=== PATIENT | female | born 1940 | race Caucasian/White ===

== ENCOUNTER 2018-10-22 08:02 | Emergency (ER) | payer MEDICARE ==
[~2018-10-22] VITALS: Ht 162.6 cm; Wt 49.0 kg
[~2018-10-22 08:02] MED LIST: ALBUTEROL S2.5 MG/.5 NEB; ALLEGRA180 MG PO; ASPIRIN EC81 MG PO; CO Q-10100 MG PO; COUGH PO; DUCODYL5 MG PO; DUONEB IN; EQUATE PO; FUROSEMIDE20 MG PO; KIONEX PO; LOSARTAN POTASS50 MG PO; MAGNESIUM-OX400 MG PO; MEDDOSEPAK PO; METOPROLOL SUC100 MG PO; MSM1500 MG PO; NEBULIZE2; OMEGA 31000 MG PO; PRAVACHOL20 MG PO; PREDNISONE10 MG PO; PROBIOTIC1 TAB PO; PROVENTIL HFA IN; SPIRIVA IN; TESSALON PER100 MG PO; ZITHROMAX250 MG PO; ZITHROMAX500 MG PO; [UNRECOGNIZED DRUG - CODE]
[2018-10-22 09:00] LABS: HEMOGLOBIN 14.3 g/dl (12.0-16.0); IMMATURE GRANULOCYTES 0.4 % (0.0-5.0); MEAN CELL VOLUME 104.9 fL CALC (80.0-100.0); MEAN CORPUSCULAR HGB 36.6 pG CALC (26.0-32.0); MEAN CORPUSCULAR HGB CONC 34.9 g/L CALC (32.0-36.0); NEUT# 6.29 thou/uL (2.00-7.15); RED BLOOD COUNT 3.91 mill/uL (4.20-5.60); RED CELL DISTRI WIDTH 15.5 % (11.5-15.5)
[2018-10-22 09:11] LABS: ALBUMIN 4.7 g/dL (3.2-5.0); BILIRUBIN, TOTAL 1.6 mg/dL (0.0-1.4); POTASSIUM 4.4 mmol/l (3.5-5.1); TOTAL PROTEIN 7.6 g/dL (6.3-8.2)
[2018-10-22 11:29] LABS: URINE BILIRUBIN - DIPSTICK NEGATIVE (NEGATIVE); URINE BLOOD DIPSTICK SMALL (NEGATIVE); URINE COLOR YELLOW; URINE GLUCOSE - DIPSTICK NEGATIVE (NEGATIVE); URINE KETONE TRACE mg/dL (NEGATIVE); URINE NITRITE - DIPSTICK NEGATIVE (Negative); URINE PROTEIN - DIPSTICK 30 mg/dL (NEG-TRACE); URINE SPECIFIC GRAVITY 1.015; URINE UROBILINOGEN - DIPSTICK 0.2 E.U./dL (0.2)
[2018-10-22 11:30] LABS: URINE LEUK ESTERASE MODERATE (NEGATIVE)
[2018-10-22 11:46] LABS: URINE BACTERIA MODERATE hpf; URINE SQUAMOUS EPITHELIAL CELL FEW EPI/hpf (0-FEW); URINE WBC TNTC WBC/hpf (0-5)
[2018-10-22 12:00] VITALS: BP 164/84
== END 2018-10-22 12:00 | disposition short-term general hospital (02) ==
LOC: ED 08:02
PROVIDERS: Family Medicine
DX: I21.4 Non-ST elevation (NSTEMI) myocardial infarction (principal); I10 Essential (primary) hypertension; R82.71 Bacteriuria
CPT/HCPCS: J1644

== ENCOUNTER 2018-11-16 10:37 | Observation (INO) | payer MEDICARE ==
[~2018-11-16] VITALS: Ht 162.6 cm; Wt 46.0 kg
--- NOTE | 2018-11-16 10:40 | NUR ---
TO ROOM 13 VIA W/C
[2018-11-16 11:35] LABS: HEMATOCRIT 43.6 % (37.0-47.0); HEMOGLOBIN 14.5 g/dl (12.0-16.0); IMMATURE GRANULOCYTES 0.5 % (0.0-5.0); MEAN CELL VOLUME 108.5 fL CALC (80.0-100.0); MEAN CORPUSCULAR HGB 36.1 pG CALC (26.0-32.0); MEAN CORPUSCULAR HGB CONC 33.3 g/L CALC (32.0-36.0); NEUT# 11.02 thou/uL (2.00-7.15); RED BLOOD COUNT 4.02 mill/uL (4.20-5.60); RED CELL DISTRI WIDTH 13.1 % (11.5-15.5)
--- NOTE | 2018-11-16 11:40 | NUR ---
PT RESTING QUIETLY AT THIS TIME. NO DOUBLE VISION AT THIS TIME, JUST STATES THAT SHE HAS BLURRY VISION..
[2018-11-16 11:56] LABS: ALBUMIN 4.7 g/dL (3.2-5.0); CREATININE 2.2 mg/dL (0.5-1.0); POTASSIUM 4.4 mmol/l (3.5-5.1); TOTAL PROTEIN 8.1 g/dL (6.3-8.2)
--- NOTE | 2018-11-16 12:36 | NUR ---
PTS BLOOD PRESSURE DECREASED, STATES FEELS LESS DIZZY AT THIS TIME, DR. SULLIVAN SPEAKING WITH PT ABOUT POSSIBLE ADMISSION
--- NOTE | 2018-11-16 13:35 | NUR ---
ADVISED PT OF NO BED STATUS FOR ADMISSION, MEAL TRAY ORDERED. WARM BLANKETS GIVEN, PT SITTING UP IN BED EATING TRAY WATCHING TV.
--- NOTE | 2018-11-16 14:07 | NUR ---
PT RESTING QUIETLY, VITAL SIGNS STABLE, SIDE RAILS UP, CALL LIGHT CLOSE
--- NOTE | 2018-11-16 15:27 | NUR ---
PT RESTING QUIETLY ON STRETCHER, LIGHTS TURNED OFF AND IV FLUIDS INFUSING
--- NOTE | 2018-11-16 16:13 | NUR ---
VITAL SIGNS REMAIN STABLE ,PT SLEEPING AT THIS TIME
--- NOTE | 2018-11-16 16:39 | NUR ---
REPORT GIVEN TO MED SURG FOR CONTINUATION OF CARE
--- NOTE | 2018-11-16 16:57 | NUR ---
PT TAKEN TO FLOOR PER STRETCHER AND TELEMENTRY
[2018-11-16 16:58] VITALS: BP 180/98
--- NOTE | 2018-11-16 17:27 | NUR ---
PT HAD COME FROM ER [facility]IA [facility]. HEAVY ANTIARMOR WE[employer]ONS INFANTRYMAN OBTAIN VS AND WT. ASSESSMENT DONE TELE IN PLACE. PT IS A&O X3 BUT FORGETFUL. #22 LAC THAT APPEARS HEALTHY. LEFT SIDE OF FACE PT HAS A BRUISE DUE TO HER FALL AT HOME. SAFETY PRECAUTIONS REINFORCED AND CALL LIGHT IN REACH. AT BEDSIDE TO ASSESS PT. NOTIFIED MD THAT PT HAS NOT HAD A BM FOR THREE DAYS AND BP 180/98. MD STATED WILL REVIEW.
[2018-11-16 18:43] VITALS: BP 170/94
[2018-11-16 19:20] VITALS: BP 140/79
--- NOTE | 2018-11-16 19:36 | NUR ---
PATIENT RESTING IN BED AT THIS TIME-AWAKE ALERT AND ORIENTEDX2. PATIENT WITH TELE MONITOR IN PLACE. IV SITE TO RIGHT AC INTACT WITH IVF LR PATENT AND INFUSING AT 100CC/HR. SITE IS HEALTHY AT THIS TIME. PATIENT WITH EECYMOTIC AREA TO LEFT SIDE OF HER FACE FROM FALL AT HOME EARLIER TODAY. PATIENT ASSISTED OOB TO THE WHEELCHAIR AND TAKEN TO ECHO FOR TESTING BY STAFF. WILL CONT TO MONITOR.
[2018-11-16 23:45] VITALS: BP 135/74
--- NOTE | 2018-11-17 | NUR ---
PATIENT FOUND SITTING ON BR FLOOR-INCONT OF MODERATE AMT OF SEMI-FORMED BROWN STOOL. PATIENT ALSO PULLED IV OUT. VS TAKEN AND RECORDED. PATIENT ASSISTED TO SHOWER TO CLEAN UP THEN ASSISTED BACK TO BED. TELE MONITOR REAPPLIED. PATIENT DENIES ANY PAIN. NSG PAPER BAG INSPECTOR NOTIFIED OF FALL. BED ALARM IN PLACE. CALL LIGHT IN REACH. WILL CONT TO MONITOR.
[2018-11-17 04:20] VITALS: BP 150/92
--- NOTE | 2018-11-17 04:33 | NUR ---
PATIENT APPEARS SLEEPING AT THIS TIME-POSITIONED ON HER RIGHT SIDE WITH EYES CLOSED. IVF PATENT AND INFUSING AT 100CC/HR. SITE TO RIGHT UPPER ARM/CHEST IS HEALTHY AT THIS TIME. TELE MONITOR IN PLACE. BED ALARM IN PLACE FOR PATIENT SAFETY. CALL LIGHT IN REACH. WILL CONT TO MONITOR.
[2018-11-17 05:17] LABS: HEMOGLOBIN 12.8 g/dl (12.0-16.0); IMMATURE GRANULOCYTES 0.5 % (0.0-5.0); MEAN CELL VOLUME 105.1 fL CALC (80.0-100.0); MEAN CORPUSCULAR HGB CONC 34.2 g/L CALC (32.0-36.0); NEUT# 8.09 thou/uL (2.00-7.15); RED BLOOD COUNT 3.56 mill/uL (4.20-5.60); RED CELL DISTRI WIDTH 12.7 % (11.5-15.5)
[2018-11-17 05:24] LABS: HEMATOCRIT 37.4 % (37.0-47.0)
[2018-11-17 05:26] LABS: BILIRUBIN, TOTAL 0.6 mg/dL (0.0-1.4); CREATININE 1.8 mg/dL (0.5-1.0); MAGNESIUM 1.9 mg/dL (1.6-2.3)
[2018-11-17 05:30] LABS: ALBUMIN 3.3 g/dL (3.2-5.0); TOTAL PROTEIN 5.9 g/dL (6.3-8.2)
[2018-11-17 07:39] VITALS: BP 139/58
--- NOTE | 2018-11-17 07:41 | NUR ---
REPORT RECEIVED FROM LILY LAY. PT LYING ON RIGHT SIDE IN BED. DENIES PAIN. REPORTING OF CONCERNS ENCOURAGED. PT REFUSING TO SIT IN CHAIR FOR BREAKFAST. PT ASSISTED TO SITTING POSITION FOR MEAL. FALL PRECAUTIONS REINFORCED. PLAN OF CARE DISCUSSED. CALL LIGHT REVIEWED AND IN REACH. PT STATES UNDERSTANDING. BED ALARM SET FOR SAFETY.
[2018-11-17 11:45] VITALS: BP 131/79
--- NOTE | 2018-11-17 12:15 | NUR ---
DR. MABRY IN TO SEE PT AT THIS TIME. VISITORS (NEIGHBORS AT BEDSIDE). PLAN OF CARE DISCUSSED. PT ADAMENT ABOUT NOT GOING TO [facility] IN THE FUTURE. NEIGHBORS VOICE CONCERNS ABOUT PT'S SAFETY ALONE AT HOME.
[2018-11-17 13:28] LABS: URINE BILIRUBIN - DIPSTICK NEGATIVE (NEGATIVE); URINE BLOOD DIPSTICK NEGATIVE (NEGATIVE); URINE COLOR YELLOW; URINE GLUCOSE - DIPSTICK NEGATIVE (NEGATIVE); URINE KETONE NEGATIVE (NEGATIVE); URINE NITRITE - DIPSTICK NEGATIVE (Negative); URINE PH 5.5 (4.5-8.0); URINE PROTEIN - DIPSTICK NEGATIVE (NEG-TRACE); URINE UROBILINOGEN - DIPSTICK 0.2 E.U./dL (0.2)
[2018-11-17 13:31] LABS: URINE LEUK ESTERASE MODERATE (NEGATIVE)
[2018-11-17 13:32] LABS: URINE EPITHELIAL CELLS FEW EPI/hpf (0-FEW); URINE RENAL EPITHELIAL CELLS FEW hpf
[2018-11-17 15:50] VITALS: BP 160/86
[2018-11-17 19:00] VITALS: BP 162/86
--- NOTE | 2018-11-17 20:00 | NUR ---
PATIENT RESTING IN BED POSITIONED ON RIGHT SIDE WITH BALL CAP IN PLACE. EYES ARE CLOSED AND APPEARS SLEEPING AT THIS TIME. RESP ARE EVEN AND UNLABORED. IVF LR PATENT AND INFUSING AT 100CC/HR VIA RIGHT UPPER ARM/CHEST SITE. SITE APPEARS HEALTHY AT THIS TIME. TELE MONITOR IN PLACE. LEFT SIDE OF PATIENT FACE/CHEEK IS ECCYMOTIC FROM FALL AT HOME. BED ALARM IN PLACE FOR PATIENT SAFETY. CALL LIGHT IN REACH. WILL CONT TO MONITOR.
--- NOTE | 2018-11-18 | NUR ---
BED ALARM IS GOING OFF-FOUND PATIENT TRYING TO GET OOB BY HERSELF. PATIENT IS FRAIL AND UNSTEADY ON HER FEET WITH HX OF FALLS. REINFORCED SAFETY PRECAUTIONS AND ASSISTED PATIENT TO THE BR TO VOID AND HAD SMALL BROWN BM. ASSISTED BACK TO BED AND BED ALARM IS BACK IN USE FOR PATIENT SAFETY. CALL LIGHT IN REACH. WILL CONT TO MONITOR.
[2018-11-18 00:44] VITALS: BP 166/89
--- NOTE | 2018-11-18 00:52 | NUR ---
PATIENT RESTING IN BED-EASY TO AROUSE. BP-166/89, HR-82, O2 SATS M96%. PATIENT MEDICATED WITH APRESOLINE 10 MG IVP FOR HTN VIA RIGHT UPPER ARM SITE. SAFETY PRECAUTIONS REINFORCED.BED ALARM IN PLACE FOR PATIENT SAFETY, CALL LIGHT IN REACH. WILL CONT TO MONITOR.
[2018-11-18 04:12] VITALS: BP 123/82
--- NOTE | 2018-11-18 05:13 | NUR ---
PATIENT APPEARS SLEEPING AT THIS TIME POSITIONED ON HER RIGHT SIDE WITH EYES CLOSED. RESP ARE EVEN AND UNLABORED. IVF PATENT AND INFUSING AT 100CC/HR A RIGHT UPPER ARM SITE. SITE APPEARS HEALTHY AT THIS TIME.TELE MONITOR IN PLACE. BED ALARM IN PLACE FOR PATIENT SAFETY. CALL LIGHT IN REACH. WILL CONT TO MONITOR.
[2018-11-18 07:50] VITALS: BP 166/87
--- NOTE | 2018-11-18 08:00 | NUR ---
ASESSMENT DONE TELE IN PLACE. PT IS A&O X2 BUT CONFUSED AT TIMES. LR INFUSING WELL AT 100ML/HR WELL. PT STATED PAIN IN BACK 03/29. PT REFUSED HER BREAKFAST. ENCOURAGE PT WITH PO FLUIDS. PT TOOK SMALL SIP OF WATER. PT DENIES NEEDS AT THIS TIME. BED ALARM IN PLACE AND CALL LIGHT IN REACH.
[2018-11-18 11:30] VITALS: BP 137/81
--- NOTE | 2018-11-18 11:40 | NUR ---
DR. MABRY AT BEDSIDE TO ASESS PT. POC DISCUSS WITH PT. BED ALARM IN PLACE AND CALL LIGHT IN REACH.
[2018-11-18 16:00] VITALS: BP 152/80
--- NOTE | 2018-11-18 16:00 | NUR ---
PT RESTING IN BED WITH NO S/S OF DISTRESS NOTED. PT DENIES NEEDS AT THIS TIME. CALL LIGHT IN REACH.
--- NOTE | 2018-11-18 19:30 | NUR ---
PATIENT RESTING IN BED AT THIS TIME WITH SON IMELDA AT BEDSIDE TO VISIT. PATIENT IS AWAKE ALERT AND ORIENTED TO PERSON, PLACE BUT IS SOMEWHAT IMPULSIVE AND FORGETFUL-TRYS TO GET OOB BY HERSELF AND SHE IS VERY UNSTEADY ON HER FEET. PATIENT IS VERY PLEASANT AND MORE TALKATIVE TONIGHT. PATIENT WITH TELE MONITOR IN PLACE. IV SITE TO RIGHT UPPER ARM/CHEST INTACT-REMAINS HEALTHY AT THIS TIME. PATIENT DENIES ANY PAIN AT THIS TIME. BED ALARM IN PLACE FOR PATIENT SAFETY. CALL LIGHT IN REACH. WILL CONT TO MONITOR.
[2018-11-18 20:00] VITALS: BP 156/88
--- NOTE | 2018-11-18 22:15 | NUR ---
PATIENT RESTING IN BED AT THIS TIME POSITIONED ON RIGHT SIDE WITH EYES CLOSED. RESP ARE EVEN AND UNLABORED. URINE CULTURE RESULTS POSTED-POSITIVE FOR PSEUDOMONAS AERUGINOSA. DR. RHODES NOTIFIED AND ORDER FOR ANTIBIOTIC RECIEVED. WILL MEDICATE WHEN PROFILED ON EMAR. BED ALARM IN PLACE. CALL LIGHT IN REACH. WILL CONT TO MONITOR.
[2018-11-19] VITALS (7 sets, daily range): BP systolic 102–167; BP diastolic 52–82
--- NOTE | 2018-11-19 02:00 | NUR ---
PATIENT RESTING IN BED-POSITIONE ON LEFT SIDE. EYES ARE CLOSED AND RESP ARE EVEN AND UNLABORED. TELE MONITOR IN PLACE. CALL LIGHT IN REACH. WILL CONT TO MONITOR.
--- NOTE | 2018-11-19 04:44 | NUR ---
BED ALARM IS GOING OFF AND RESPONDED TO ROOM. ASSISTED PATIENT TO BR-SEEMS A BIT STRONGER AND STEADY ON HER FEET TONIGHT. VOIDED YELLOW URINE AND ASSISTED BACK TO THE BED. TELE MONITOR IN PLACE. BED ALARM IN PLACE FOR PATIENT SAFETY. CALL LIGHT IN REACH. WILL CONT TO MONITOR.
[2018-11-19 05:46] LABS: ALBUMIN 2.7 g/dL (3.2-5.0); BILIRUBIN, TOTAL 0.5 mg/dL (0.0-1.4); CREATININE 1.6 mg/dL (0.5-1.0); MAGNESIUM 1.6 mg/dL (1.6-2.3); POTASSIUM 3.6 mmol/l (3.5-5.1); TOTAL PROTEIN 5.1 g/dL (6.3-8.2)
[2018-11-19 05:49] LABS: HEMATOCRIT 37.9 % (37.0-47.0); HEMOGLOBIN 12.5 g/dl (12.0-16.0); IMMATURE GRANULOCYTES 0.4 % (0.0-5.0); MEAN CELL VOLUME 109.9 fL CALC (80.0-100.0); MEAN CORPUSCULAR HGB 36.2 pG CALC (26.0-32.0); NEUT# 4.07 thou/uL (2.00-7.15); RED BLOOD COUNT 3.45 mill/uL (4.20-5.60); RED CELL DISTRI WIDTH 13.2 % (11.5-15.5)
--- NOTE | 2018-11-19 07:20 | NUR ---
REPORT RECEIVED FROM LILY LAY;PT APPEARS TO BE SLEEPING IN SEMI FOWLERS POSITION;NO S/S OF DISTRESS NOTED;RESPIRATIONS EVEN AND UNLABORED ON RA;TELE MONITORING IN PLACE;ALL SAFETY PRECAUTIONS REINFORCED WITH BED IN THE LOWEST POSITION AND BED ALARM ON FOR SAFETY;CALL LIGHT IN REACH;WILL CONTINUE TO MONITOR
--- NOTE | 2018-11-19 08:50 | NUR ---
PT AMBULATED FROM RESTROOM TO BED WITH A STEADY GAIT AND WALKER AFTER VOIDING YELLOW URINE;PT RE-POSITIONED BACK INTO BED;ALERT AND ORIENTED X3 WITH FORGETFULNESS NOTED AT TIMES;VS OBTAINED AND ASSESSMENT COMPLETED;RESPIRATIONS EVEN AND UNLABORED ON RA,CLEAR LUNG SOUNDS NOTED;ABDOMEN SOFT ON PALPATION AND ACTIVE IN ALL 4 QUADRANTS;TELE MONITORING IN PLACE;SKIN INTACT;#24G TO RIGHT UPPER ARM FLUSHED AND PATENT,SITE APPEARS HEALTHY;PO FLUIDS ENCOURAGED;PT DENIES ANY ADDITIONAL NEEDS AT THIS TIME AND IS ENCOURAGED TO CALL FOR ASSISTANCE IF NEEDED;FALL PRECAUTIONS IN PLACE WITH BED ALARM ON FOR SAFETY;CALL LIGHT IN REACH;WILL CONTINUE TO MONITOR
--- NOTE | 2018-11-19 09:34 | NUR ---
PHYSICAL THERAPY AT BEDSIDE WORKING WITH PATIENT.
--- NOTE | 2018-11-19 09:53 | NUR ---
PATIENT ALERT TO SELF AND PLACE. DEMONSTRATES COMPROMISED MEMORY, ASKING IF IT IS FRIDAY. SUPINE TO SIT TO STAND WITH CGA FOR SAFETY. AMB 80 FT X 2 WITH STANDING REST. NO C/O DIZZINESS OR LOB. HX OF FALLS AND SYNCOPE CONTINUE TO INDICATE REHAB POTENTIAL FOR INPATIENT REHAB FOR BALANCE AND SAFETY. STAND TO SIT WITH V.C.'S FOR HAND PLACEMENT. CALL FORTE AND TRAY TABLE IN REACH.
--- NOTE | 2018-11-19 11:50 | NUR ---
AT BEDSIDE DISCUSSING POC.
--- NOTE | 2018-11-19 12:10 | NUR ---
PT OOB RESTING IN RECLINER;RESPIRATIONS EVEN AND UNLABORED ON RA;PT DENIES ANY CURRENT PAIN OR NEEDS;TELE MONITORING IN PLACE;BED ALARM ON FOR PT SAFETY;ENCOURAGED TO CALL FOR ASISSTANCE IF NEEDED;CALL LIGHT IN REACH;WILL CONTINUE TO MONITOR
--- NOTE | 2018-11-19 16:20 | NUR ---
PT RESTING IN SEMI FOWLERS POSITION;RESPIRATIONS EVEN AND UNLABORED ON RA;PT DENIES ANY CURRENT PAIN OR DISCOMFORTS;TELE MONITORING IN PLACE;IV SITE TO LAUREN PATENT;PT DENIES ANY CURRENT NEEDS AND IS INSTRUCTED TO CALL FOR ASSISTANCE IF NEEDED;BED ALARM REMAINS ON FOR PT SAFETY;CALL LIGHT IN REACH;WILL CONTINUE TO MONITOR
--- NOTE | 2018-11-19 20:26 | NUR ---
ASSESSMENT COMPLETED; NO DISTRESS NOTED; PT. IS FORGETFUL, BUT A/A/O X3. IV SITE PATENT AND SL; SCHED MEDS GIVEN. SON IN AT BEDSIDE SAYING GOODBYE; PT. IS ASSISTED TO THE BATHROOM AND BACK TO BED WITH STEADY GAIT AND USE OF WALKER; BED ALARM SET FOR SAFETY; CALL LIGHT IS IN REACH AND RE-EDUCATED COURT REPORTER LIGHT USE; VERBALIZES UNDERSTANDING; WILL CONTINUE TO MONITOR.
--- NOTE | 2018-11-20 | NUR ---
PT. RESTING IN BED WITH NO DISTRESS NOTED; RESP EVEN AND UNLABORED; CALL LIGHT IS IN REACH. BED ALARM IS IN PLACE.
--- NOTE | 2018-11-20 04:00 | NUR ---
PT. RESTING IN BED WITH EYES CLOSED; NO DISTRESS NOTED; RESP. EVEN AND UNLABORED; BED ALARM IN PLACE; CALL LIGHT IS IN REACH.
[2018-11-20 04:30] VITALS: BP 152/82
[2018-11-20 05:10] LABS: HEMATOCRIT 34.9 % (37.0-47.0); HEMOGLOBIN 11.4 g/dl (12.0-16.0); IMMATURE GRANULOCYTES 0.5 % (0.0-5.0); MEAN CELL VOLUME 109.1 fL CALC (80.0-100.0); MEAN CORPUSCULAR HGB 35.6 pG CALC (26.0-32.0); MEAN CORPUSCULAR HGB CONC 32.7 g/L CALC (32.0-36.0); NEUT# 3.22 thou/uL (2.00-7.15); RED BLOOD COUNT 3.2 mill/uL (4.20-5.60); RED CELL DISTRI WIDTH 13.1 % (11.5-15.5)
[2018-11-20 05:28] LABS: ALBUMIN 2.7 g/dL (3.2-5.0); BILIRUBIN, TOTAL 0.4 mg/dL (0.0-1.4); CREATININE 1.6 mg/dL (0.5-1.0); MAGNESIUM 1.5 mg/dL (1.6-2.3); POTASSIUM 3.9 mmol/l (3.5-5.1)
--- NOTE | 2018-11-20 07:14 | NUR ---
REPORT RECIEVED FROM LILY OLMOS. PT SLEEPING. NO S/S OF DISTRESS. CALL LIGHT IN REACH. WILL CONTINUE TO MONITOR.
[2018-11-20 07:57] VITALS: BP 117/51
--- NOTE | 2018-11-20 07:57 | NUR ---
PT A/O X3. SPEECH IS CLEAR. PT HAS SOME BRUISING TO LT CHEEK. RESP EVEN AND UNLABORED. LUNG SOUNDS CLEAR. TELE IN PLACE. BOWEL SOUNDS ACTIVE X4. STRONG RADIAL AND PEDAL PULSES. #24 LAUREN SL. FLUSHED AND PATENT. SITE APPEARS HEALTHY. SKIN INTACT. PT DENIES ANY PAIN OR NEEDS. POC DISCUSSED. SAFETY PRECAUTIONS IN PLACE. CALL LIGHT IN REACH. WILL CONTINUE TO MONITOR.
--- NOTE | 2018-11-20 10:16 | NUR ---
Pt seen this am for gait and ther ex. She was working with [employer] getting ready for am care but ready to participate with PT. Pt ambulated with SBA using RW and the CGA without assist device x 75' each time. She needed assist with direction and was slightly confused (almost walked into door when leaving room). Balance activities required CGA for side stepping and simple braiding. Up on toes, mini squats and bridging performed. Pt stated she does some ex in bed and was able to demonstrate some ex. Pt was left in chair with alarm in place tray in front of her and desktop engineer to notify [employer] that pt was ready for am care. Pt reminded not to get up alone.
[2018-11-20 11:49] VITALS: BP 109/68
--- NOTE | 2018-11-20 12:20 | NUR ---
PT SITTING IN RECLINER EATING LUNCH. NO C/O PAIN OR NEEDS. CALL LIGHT IN REACH. WILL CONTINUE TO MONITOR.
[2018-11-20 15:20] VITALS: BP 123/73
--- NOTE | 2018-11-20 16:10 | NUR ---
PT RESTING IN BED. NO C/O PAIN OR NEEDS. CALL LIGHT IN REACH. BED ALARM ON. WILL CONTINUE TO MONITOR
[2018-11-20] MEDS ORDERED: APRESOLINE25 MG/TAB PO (16:40)
[2018-11-20] MEDS ORDERED: MIRTAZAPINE15 MG PO (16:41)
[2018-11-20] MEDS ORDERED: AMLODIPINE BESYL5 MG PO (16:41)
[2018-11-20 19:20] VITALS: BP 149/68
--- NOTE | 2018-11-20 21:08 | NUR ---
PATIENT LEFT AT 2004 WITH SON. TELEMERTY REMOVED. IV REMOVED. PATIENTED WAS ASSISTED TO GET DRESSED BY STAFF. KIERSTEN PEÑA TOOK THE PATIENT VIA WHEELCHAIR TO [employer] [facility].
== END 2018-11-20 20:05 ==
LOC: ED 10:37 → ED-I 12:34 → ED 12:48 → ED-I 12:49 → MS2 12:49 → ED-I 12:49 → MS2 16:37
PROVIDERS: Family Medicine; ADMIT Internal Medicine Nephrology; ATTEND Internal Medicine Nephrology
DX: J01.00 Acute maxillary sinusitis, unspecified (principal); I12.9 Hypertensive chronic kidney disease with stage 1 through stage 4 chronic kidney disease, or unspecified chronic kidney disease; N18.3 Chronic kidney disease, stage 3 (moderate); N17.9 Acute kidney failure, unspecified; J44.9 Chronic obstructive pulmonary disease, unspecified; E78.5 Hyperlipidemia, unspecified; F03.90 Unspecified dementia, unspecified severity, without behavioral disturbance, psychotic disturbance, mood disturbance, and anxiety; K59.00 Constipation, unspecified; F32.9 Major depressive disorder, single episode, unspecified; N27.1 Small kidney, bilateral; Z91.14 Patient's other noncompliance with medication regimen; Z87.891 Personal history of nicotine dependence; Z79.899 Other long term (current) drug therapy; H53.2 Diplopia; R42 Dizziness and giddiness; R94.31 Abnormal electrocardiogram [ECG] [EKG]
CPT/HCPCS: J0692; J1650

== ENCOUNTER 2021-01-25 07:50 | Inpatient (IN) | payer MEDICARE, OTHER ==
[~2021-01-25] VITALS: Ht 162.6 cm; Wt 49.0 kg
[~2021-01-25 07:50] MED LIST changes: +24HR ALLERGY R180 MG PO; -ALLEGRA180 MG PO; +AMLODIPINE BESYL5 MG PO; +APRESOLINE25 MG/TAB PO; +MIRTAZAPINE15 MG PO; -PRAVACHOL20 MG PO; +PRAVASTATIN SOD20 MG PO
[2021-01-25] MEDS ORDERED: AMLODIPINE BESY10 MG PO (08:11)
[2021-01-25] MEDS ORDERED: ALLOPURINOL100 MG PO (08:11)
[2021-01-25] MEDS ORDERED: DICLOFENAC SODIUM1 % (08:14)
[2021-01-25] MEDS ORDERED: MIRTAZAPINE15 MG PO (08:15)
[2021-01-25] MEDS ORDERED: HYDRALAZINE50 MG PO (08:15)
[2021-01-25] MEDS ORDERED: PEG335017 GM/SCOO PO (08:16)
[2021-01-25] MEDS ORDERED: SENNA-TABS8.6 MG PO (08:16)
[2021-01-25] MEDS ORDERED: SERTRALINE HCL50 MG PO (08:17)
[2021-01-25] MEDS ORDERED: ARTHRTS PAIN650 M1 PO (08:18)
[2021-01-25] MEDS ORDERED: DOK100 MG PO (08:19)
[2021-01-25] MEDS ORDERED: CONSTULOSE10 GM/15 M PO (08:20)
[2021-01-25 08:28] LABS: HEMATOCRIT 37.6 % (37.0-47.0); HEMOGLOBIN 11.9 g/dl (12.0-16.0); IMMATURE GRANULOCYTES 0.6 % (0.0-5.0); MEAN CORPUSCULAR HGB 32.2 pG CALC (26.0-32.0); MEAN CORPUSCULAR HGB CONC 31.6 g/dL CAL (32.0-36.0); NEUT# 10.13 thou/uL (2.00-7.15); RED BLOOD COUNT 3.7 mill/uL (4.20-5.60); RED CELL DISTRI WIDTH 13.8 % (11.5-15.5)
[2021-01-25 08:33] LABS: MEAN CELL VOLUME 101.6 fL CALC (80.0-100.0)
[2021-01-25 08:45] LABS: ALKALINE PHOSPHATASE 86 u/l (38-126); ANION GAP 13 (6-22 (CALC)); BUN 25 mg/dL (8-23); BUN/CREATININE RATIO 15 (12-20 (CALC)); CARBON DIOXIDE 23 mmol/l (22-30); CHLORIDE 105 mmol/l (95-108); CREATININE 1.7 mg/dL (0.5-1.0); GFR 29 ML/MIN (>=60 (CALC)); GFR FOR AFR.AMER. 35 ML/MIN (>=60 (CALC)); POTASSIUM 4.5 mmol/l (3.5-5.1); SGOT/AST 27 u/l (9-36); SODIUM 137 mmol/l (137-146)
[2021-01-25 08:46] LABS: ALBUMIN 3.8 g/dL (3.2-5.0); BILIRUBIN, TOTAL 0.6 mg/dL (0.0-1.4)
[2021-01-25 08:57] LABS: MYOGLOBIN 61 ng/mL (0 - 62)
[2021-01-25 09:11] LABS: URINE BILIRUBIN - DIPSTICK NEGATIVE (NEGATIVE); URINE BLOOD DIPSTICK NEGATIVE (NEGATIVE); URINE COLOR YELLOW; URINE GLUCOSE - DIPSTICK NEGATIVE (NEGATIVE); URINE KETONE NEGATIVE (NEGATIVE); URINE PH 6.5 (4.5-8.0); URINE PROTEIN - DIPSTICK TRACE mg/dL (NEG-TRACE); URINE SPECIFIC GRAVITY 1.015; URINE UROBILINOGEN - DIPSTICK 0.2 E.U./dL (0.2)
[2021-01-25 09:15] LABS: URINE LEUK ESTERASE LARGE (NEGATIVE); URINE NITRITE - DIPSTICK NEGATIVE (Negative)
[2021-01-25 09:16] LABS: URINE BACTERIA MODERATE hpf; URINE EPITHELIAL CELLS FEW EPI/hpf (0-FEW); URINE WBC 20-50 WBC/hpf (0-5)
[2021-01-25 09:50] VITALS: BP 109/51
[2021-01-25 11:22] VITALS: BP 105/56
[2021-01-25 15:40] VITALS: BP 83/51
[2021-01-25 16:42] VITALS: BP 132/74
[2021-01-25 19:40] VITALS: BP 103/59
[2021-01-26] VITALS (7 sets, daily range): BP systolic 86–141; BP diastolic 40–65
[2021-01-26 05:32] LABS: HEMATOCRIT 33.1 % (37.0-47.0); HEMOGLOBIN 10.4 g/dl (12.0-16.0); IMMATURE GRANULOCYTES 0.4 % (0.0-5.0); MEAN CELL VOLUME 102.8 fL CALC (80.0-100.0); MEAN CORPUSCULAR HGB 32.3 pG CALC (26.0-32.0); MEAN CORPUSCULAR HGB CONC 31.4 g/dL CAL (32.0-36.0); NEUT# 4.21 thou/uL (2.00-7.15); RED BLOOD COUNT 3.22 mill/uL (4.20-5.60); RED CELL DISTRI WIDTH 13.7 % (11.5-15.5)
[2021-01-26 05:58] LABS: BILIRUBIN, TOTAL 0.5 mg/dL (0.0-1.4); CREATININE 1.7 mg/dL (0.5-1.0); POTASSIUM 4.8 mmol/l (3.5-5.1)
[2021-01-26 06:04] LABS: MAGNESIUM 1.9 mg/dL (1.6-2.3)
[2021-01-26 06:14] LABS: ALBUMIN 2.7 g/dL (3.2-5.0); C-REACTIVE PROTEIN 14.4 mg/dL (0-0.9); TOTAL PROTEIN 5.4 g/dL (6.3-8.2)
[2021-01-27 04:05] VITALS: BP 103/51
[2021-01-27 06:33] LABS: HEMATOCRIT 31.2 % (37.0-47.0); HEMOGLOBIN 9.6 g/dl (12.0-16.0); MEAN CELL VOLUME 103.3 fL CALC (80.0-100.0); MEAN CORPUSCULAR HGB 31.8 pG CALC (26.0-32.0); MEAN CORPUSCULAR HGB CONC 30.8 g/dL CAL (32.0-36.0); RED BLOOD COUNT 3.02 mill/uL (4.20-5.60); RED CELL DISTRI WIDTH 14.1 % (11.5-15.5)
[2021-01-27 06:54] LABS: CREATININE 1.7 mg/dL (0.5-1.0); MAGNESIUM 2.1 mg/dL (1.6-2.3)
[2021-01-27 08:49] VITALS: BP 117/60
[2021-01-27 10:00] VITALS: BP 114/58
[2021-01-27 14:33] VITALS: BP 116/61
[2021-01-27 19:20] VITALS: BP 132/69
[2021-01-28] VITALS: BP 103/57
[2021-01-28 04:00] VITALS: BP 134/68
[2021-01-28 07:05] LABS: HEMATOCRIT 32.6 % (37.0-47.0); HEMOGLOBIN 10.3 g/dl (12.0-16.0); IMMATURE GRANULOCYTES 1.2 % (0.0-5.0); MEAN CELL VOLUME 103.8 fL CALC (80.0-100.0); MEAN CORPUSCULAR HGB 32.8 pG CALC (26.0-32.0); MEAN CORPUSCULAR HGB CONC 31.6 g/dL CAL (32.0-36.0); NEUT# 5.32 thou/uL (2.00-7.15); RED BLOOD COUNT 3.14 mill/uL (4.20-5.60); RED CELL DISTRI WIDTH 14.4 % (11.5-15.5)
[2021-01-28 07:45] VITALS: BP 150/67
[2021-01-28 08:41] LABS: ALBUMIN 2.7 g/dL (3.2-5.0); BILIRUBIN, TOTAL 0.4 mg/dL (0.0-1.4); C-REACTIVE PROTEIN 4.2 mg/dL (0-0.9); CREATININE 1.5 mg/dL (0.5-1.0); POTASSIUM 4.8 mmol/l (3.5-5.1); TOTAL PROTEIN 5.4 g/dL (6.3-8.2)
[2021-01-28 10:30] VITALS: BP 116/63
[2021-01-28] MEDS ORDERED: VANTIN100 MG PO (10:38)
== END 2021-01-28 14:00 | DRG 292 ==
LOC: ED 07:50 → ED-I 09:15 → ED 09:28 → MS2 09:29
PROVIDERS: Emergency Medicine; Nurse Practitioner; Nurse Practitioner Family; ADMIT Internal Medicine; ATTEND Internal Medicine
DX: I13.0 Hypertensive heart and chronic kidney disease with heart failure and stage 1 through stage 4 chronic kidney disease, or unspecified chronic kidney disease (principal); N39.0 Urinary tract infection, site not specified; I50.9 Heart failure, unspecified; R07.9 Chest pain, unspecified; R09.02 Hypoxemia; N18.30 Chronic kidney disease, stage 3 unspecified; J44.9 Chronic obstructive pulmonary disease, unspecified; K59.09 Other constipation; F41.9 Anxiety disorder, unspecified; F32.9 Major depressive disorder, single episode, unspecified; E78.5 Hyperlipidemia, unspecified; M10.9 Gout, unspecified; R76.8 Other specified abnormal immunological findings in serum; B96.20 Unspecified Escherichia coli [E. coli] as the cause of diseases classified elsewhere; Z87.891 Personal history of nicotine dependence; Z20.822 Contact with and (suspected) exposure to COVID-19
CPT/HCPCS: J1650

== ENCOUNTER 2021-02-11 10:17 | Inpatient (IN) | payer MEDICARE, OTHER ==
[~2021-02-11 10:17] MED LIST changes: +ALLOPURINOL100 MG PO; +AMLODIPINE BESY10 MG PO; +ARTHRTS PAIN650 M1 PO; +CONSTULOSE10 GM/15 M PO; +DICLOFENAC SODIUM1 %; +DOK100 MG PO; +HYDRALAZINE50 MG PO; +PEG335017 GM/SCOO PO; +SENNA-TABS8.6 MG PO; +SERTRALINE HCL50 MG PO; +VANTIN100 MG PO
--- NOTE | 2021-02-11 10:17 | NUR ---
PT TO ROOM 11 VIA EMS. BEDSIDE TRIAGE COMPLETED
--- NOTE | 2021-02-11 11:15 | NUR ---
RESTING ON STRETCHER. CALL FORTE WITHIN REACH.
[2021-02-11 11:27] LABS: HEMATOCRIT 34.9 % (37.0-47.0); HEMOGLOBIN 11.1 g/dl (12.0-16.0); IMMATURE GRANULOCYTES 0.4 % (0.0-5.0); MEAN CELL VOLUME 99.1 fL CALC (80.0-100.0); MEAN CORPUSCULAR HGB 31.5 pG CALC (26.0-32.0); MEAN CORPUSCULAR HGB CONC 31.8 g/dL CAL (32.0-36.0); NEUT# 7.09 thou/uL (2.00-7.15); RED BLOOD COUNT 3.52 mill/uL (4.20-5.60); RED CELL DISTRI WIDTH 13.5 % (11.5-15.5)
[2021-02-11 11:37] LABS: ALKALINE PHOSPHATASE 68 u/l (38-126); BUN 23 mg/dL (8-23); BUN/CREATININE RATIO 13 (12-20 (CALC)); CARBON DIOXIDE 23 mmol/l (22-30); CHLORIDE 101 mmol/l (95-108); CREATININE 1.8 mg/dL (0.5-1.0); GFR 27 ML/MIN (>=60 (CALC)); GFR FOR AFR.AMER. 33 ML/MIN (>=60 (CALC)); POTASSIUM 4.5 mmol/l (3.5-5.1); SGOT/AST 27 u/l (9-36)
[2021-02-11 11:39] LABS: ALBUMIN 3.5 g/dL (3.2-5.0); ANION GAP 13 (6-22 (CALC)); BILIRUBIN, TOTAL 0.7 mg/dL (0.0-1.4); SODIUM 132 mmol/l (137-146); TOTAL PROTEIN 6.5 g/dL (6.3-8.2)
--- NOTE | 2021-02-11 12:15 | NUR ---
RESTING ON STRETCHER. PHYSICIAN SPOKE WITH SON REGARDING CARE.
--- NOTE | 2021-02-11 13:15 | NUR ---
RESTING ON STRETCHER.FAMILY AT BEDSIDE.
--- NOTE | 2021-02-11 14:15 | NUR ---
RESTING ON STRETCHER. CALL FORTE WITHIN REACH.
--- NOTE | 2021-02-11 15:15 | NUR ---
SON AT BEDSIDE. RESTING ON STRETCHER.
--- NOTE | 2021-02-11 16:34 | NUR ---
SON AT BEDSIDE. IN TO SPEAK WITH HIM.
--- NOTE | 2021-02-11 17:35 | NUR ---
RESTING ON STRETCHER. CALL FORTE WITHIN REACH.
--- NOTE | 2021-02-11 17:52 | NUR ---
ATTEMPTED TO CALL REPORT. RN ON FLOOR UNABLE TO TAKE REPORT. WILL CALL BACK.
--- NOTE | 2021-02-11 18:29 | NUR ---
REPORT GIVEN TO MARTY. PT TRANSPORTED TO FLOOR ON TELE WITH RN IN STABLE CONDITION.
--- NOTE | 2021-02-11 18:44 | NUR ---
SON CALLED AND IS BRINGING HIS MOTHERS BELONGINGS FROM THE [place]. NEEDS TO SEE HER PRIOR TO HIM GOING BACK HOME (HE DOESN'T LIVE HERE". MARTY BAUTISTA AUTHORIZED A SHORT VISIT .
[2021-02-11 19:30] VITALS: BP 139/76
[2021-02-11 23:50] VITALS: BP 166/79
--- NOTE | 2021-02-12 02:14 | NUR ---
PATIENT RECEIVED TO UNIT AT 1838 BY GAURAV. PATIENT IS ALERT TO PERSON AND SOMETIMES PLACE. CALM, PLEASANT. RESPIRATIONS EASY O2 2L N/C. SKIN WARM AND DRY. PERDOMO CATHETER IN PLACE, SECURED, DRAINING YELLOW URINE TO GRAVITY. SON CAME UP TO VISIT AT 1999. FALL PRECAUTIONS INITIATED AND MAINTAINED. BED ALARM ON. BED IN LOW POSITION. CALL LIGHT WITHIN REACH.
[2021-02-12 04:12] VITALS: BP 124/66
[2021-02-12 05:09] LABS: URINE BILIRUBIN - DIPSTICK NEGATIVE (NEGATIVE); URINE BLOOD DIPSTICK NEGATIVE (NEGATIVE); URINE CLARITY SL CLOUDY; URINE COLOR YELLOW; URINE GLUCOSE - DIPSTICK NEGATIVE (NEGATIVE); URINE KETONE NEGATIVE (NEGATIVE); URINE LEUK ESTERASE NEGATIVE (Negative); URINE NITRITE - DIPSTICK NEGATIVE (Negative); URINE PH 5.5 (4.5-8.0); URINE PROTEIN - DIPSTICK 30 mg/dL (NEG-TRACE); URINE SPECIFIC GRAVITY 1.025; URINE UROBILINOGEN - DIPSTICK 0.2 E.U./dL (0.2)
[2021-02-12 05:21] LABS: HEMATOCRIT 31.1 % (37.0-47.0); HEMOGLOBIN 9.7 g/dl (12.0-16.0); IMMATURE GRANULOCYTES 0.6 % (0.0-5.0); MEAN CELL VOLUME 101.6 fL CALC (80.0-100.0); MEAN CORPUSCULAR HGB 31.7 pG CALC (26.0-32.0); MEAN CORPUSCULAR HGB CONC 31.2 g/dL CAL (32.0-36.0); NEUT# 6.14 thou/uL (2.00-7.15); RED BLOOD COUNT 3.06 mill/uL (4.20-5.60); RED CELL DISTRI WIDTH 13.7 % (11.5-15.5)
[2021-02-12 05:31] LABS: URINE RBC 0-2 RBC/hpf (0-5); URINE SQUAMOUS EPITHELIAL CELL FEW EPI/hpf (0-FEW)
[2021-02-12 05:32] LABS: BILIRUBIN, TOTAL 0.5 mg/dL (0.0-1.4); CREATININE 1.6 mg/dL (0.5-1.0); POTASSIUM 4.3 mmol/l (3.5-5.1)
--- NOTE | 2021-02-12 05:35 | NUR ---
0400 NO URINE OUT TO PERDOMO CATHETER. PERDOMO CATHETER FOUND PULLED OUT WITH BALLOON INTACT. NO BLOOD NOTED. 16 BENGALI PERDOMO CATHETER REINSERTED WITHOUT DIFFICULTY USING STERILE TECHNIQUE. FALL PRECAUTIONS IN PLACE. BED IN LOW POSITION. CALL LIGHT WITHIN REACH.
[2021-02-12 05:45] LABS: ALBUMIN 2.5 g/dL (3.2-5.0); TOTAL PROTEIN 5.1 g/dL (6.3-8.2)
--- NOTE | 2021-02-12 07:45 | NUR ---
REPORT RECEIVED; PT RESTING IN BED SEMI FOWLERS WITH EYES CLOSED AND NO SIGNS OF DISTRESS; AWAKENS TO VERBAL STIMULI. ALERT AND ORIENTED TO PERSON ONLY; PLEASANTLY CONFUSED. DENIES PAIN. RESPIRATIONS EVEN AND UNLABORED ON OXYGEN 3L VIA NC; LUNGS ARE CLEAR. 16F PERDOMO CATHETER DRAINING CLEAR, YELLOW URINE. 20G TO LFA APPEARS HEALTHY; NS INFUSING AT 125 ML/HR. SINUS RHYTHM ON TELEMETRY. SAFETY MEASURES IN PLACE INCLUDING BED ALARM. CALL LIGHT WITHIN REACH; REMINDED ON USE.
[2021-02-12 08:00] VITALS: BP 87/49
--- NOTE | 2021-02-12 09:14 | NUR ---
S: BRADLEY VAZQUEZ is a 80 F who presents with pneumonia. She has a history of hypertension, hyperlipidemia, CHF, dementia, anxiety, dementia, renal insufficiency, COPD, and ETOH. All medications in patient's chart were reviewed. O: VS: BP 87/49 mmHg, P 78 bpm, RR 22 bpm,T 97.2 F W 50.5 kg, HT 64 in, Scr= 1.6 mg/dl,CrCl= 22.7 ml/min A: Blood culture is pending. P: Patient is on Zosyn 3.375 g IV Q6H. Vancomycin ordered for pharmacy to dose. Start Vancomycin 750 mg IV Q36H. Vancomycin trough is drawn before the 4th dose on 02/15/21 @ 21:30. Vancomycin goal trough is between 15-20 mcg/ml. Pharmacy will follow and or advise on antibiotics use as needed.
--- NOTE | 2021-02-12 09:18 | NUR ---
DR. BRUNSON AND ALEJANDRA ORR AT BEDSIDE.
--- NOTE | 2021-02-12 10:03 | NUR ---
ALL BLOOD PRESSURE MEDICATIONS HELD FOR BLOOD PRESSURE OF 100/43 HEART RATE 82. PT C/O OF URGE TO VOID; PERDOMO IS PATENT AND DRAINING; BLADDER SCAN REPORTS ZERO; NO LOWER ABDOMINAL DISTENTION NOTED; WILL CONTINUE TO MONITOR.
[2021-02-12 10:31] VITALS: BP 98/53
--- NOTE | 2021-02-12 12:12 | NUR ---
SON,IMELDA, CALLED FOR UPDATE; QUESTIONS ANSWERED TO SATISFACTION. PT RESTING WITH NO REQUESTS OR CONCERNS.
--- NOTE | 2021-02-12 15:38 | NUR ---
OFF UNIT VIA WHEELCHAIR WITH OXYGEN FOR NUCLEAR MED LUNG SCAN.
[2021-02-12 16:00] VITALS: BP 123/73
--- NOTE | 2021-02-12 16:08 | NUR ---
RETURNED TO ROOM IN STABLE CONDITION; RECONNECTED TO IV FLUIDS AND TELEMETRY.
--- NOTE | 2021-02-12 16:09 | NUR ---
OXYGEN TITRATED DOWN TO 2L VIA NC.
--- NOTE | 2021-02-12 16:54 | NUR ---
TYLENOL GIVEN FOR BACK ACHE.
[2021-02-12 19:00] VITALS: BP 95/52
--- NOTE | 2021-02-12 20:00 | NUR ---
PHYSICAL ASSESMENT COMPLETE. PT CURRENTLY DENIES PAIN OR DISCOMFORT. SCHEDULED MEDICATIONS AND PRN MEDICATION ADMINISTERED, SEE E-MAR. PT DENIES ANY NEEDS AT THIS TIME. PLAN OF CARE REVIEWED, PT DENIES QUESTIONS, VERBALIZES UNDERSTANDING. ITEMS WITHIN REACH, BED LOCKED IN LOW POSITION W/ BEDRAILS UP X2. CALL FORTE WITHIN REACH, AGREES TO CALL PRN.
--- NOTE | 2021-02-12 22:50 | NUR ---
PT CONFUSED. PULLED IV AND TELEMENTRY
--- NOTE | 2021-02-12 23:15 | NUR ---
EKG ORDERED FOR ED TELEVISION TECHNICIAN REPORT THAT PTS HR WAS SUSTAINING IN THE 140'S AND THAT RHYTHM LOOKS LIKE IT CHANGED. PT MOVED TO 271 TO MONITOR AND WATCH CLOSELY. EKH SHOWED AHR OF 92 IN SR. WILL CONTINUE TO MONITOR.
[2021-02-13] VITALS: BP 132/81
--- NOTE | 2021-02-13 | NUR ---
PT CONVERETED TO A-FIB PER ED MONITORS. EKG PERFORMED TO CONFIRM A-FIB REBECCA HR 135, LIFT MECHANIC DANITA BAEZ CONTACTED. ADVISED TO ADMINISTER PTS PRESCRIBED METROPOLOL. METROPOLOL ADMINISTERED. WILL CONINUR TO MONITOR.
[2021-02-13 04:00] VITALS: BP 122/69
--- NOTE | 2021-02-13 04:00 | NUR ---
PT RESTING IN BED, NO SIGNS OF DISTRESS NOTED, RESP EVEN AND UNLABORED. PT VOICES NO NEEDS OR COMPLAINTS AT THIS TIME. CALL LIGHT IN REACH, CONTINUE TO MONITOR.
[2021-02-13 05:06] LABS: HEMATOCRIT 35.3 % (37.0-47.0); HEMOGLOBIN 10.5 g/dl (12.0-16.0); MEAN CELL VOLUME 103.2 fL CALC (80.0-100.0); MEAN CORPUSCULAR HGB 30.7 pG CALC (26.0-32.0); MEAN CORPUSCULAR HGB CONC 29.7 g/dL CAL (32.0-36.0); RED BLOOD COUNT 3.42 mill/uL (4.20-5.60); RED CELL DISTRI WIDTH 13.9 % (11.5-15.5)
[2021-02-13 05:20] LABS: CREATININE 1.6 mg/dL (0.5-1.0); MAGNESIUM 1.9 mg/dL (1.6-2.3); POTASSIUM 4.4 mmol/l (3.5-5.1)
--- NOTE | 2021-02-13 07:00 | NUR ---
PT REPORT RECEIVED FROM NIGHT NURSEANASTACIO.
--- NOTE | 2021-02-13 07:12 | NUR ---
PT note Patient is screened for PT intervention and may benefit from consult if medical agrees
[2021-02-13 07:20] VITALS: BP 117/70
--- NOTE | 2021-02-13 08:00 | NUR ---
PT WAS FOUND SLEEPING IN BED;PT WAS SLOW TO AROUSE AND SEEMED DROWSY;SHE DID AWAKEN AND WAS ABLE TO TAKE HER MEDICATIONS;PT CONTINUES TO SUFFER CONFUSION;SHE KNOWS HER NAME AND MONTH AND YEAR, BUT DOES NOT KNOW WHERE SHE IS;PT WAS ABLE TO CARRY ON A CONVERSATION AFTER AWAKENING AND SEEMED VERY AWAKE;VS AND ASSESSMENT WERE COMPLETED;PT HAS NO REPORTS OF PAIN AT THIS TIME;HEART SOUNDS WERE REGULAR IN RATE AND RHYTHM;LUNG SOUNDS ARE CLEAR;RESPIRATIONS ARE EVEN AND UNLABORED ON O2@3L VIA NC;PERDOMO IS IN PLACE DRAINING CLEAR YELLOW URINE;#22G IN IN TONEY IS RUNNING NS@75 ML/HR;IV SITE IS FREE OF COMPLICATIONS AT THIS TIME;TELE IS IN PLACE;SAFETY PRECAUTIONS IN PLACE;BED ALARM ON;CALL LIGHT WITHIN REACH;BED IN LOWEST POSITION;WILL CONTINUE TO MONITOR.
--- NOTE | 2021-02-13 10:10 | NUR ---
AND MARITO ROBERTS AT BEDSIDE DISCUSSING POC WITH PT
[2021-02-13 10:19] VITALS: BP 101/56
[2021-02-13 10:42] LABS: C-REACTIVE PROTEIN 19.4 mg/dL (0-0.9)
--- NOTE | 2021-02-13 10:47 | NUR ---
Pt screened by ST services. Pt would benefit from a swallow evaluation given hx of dementia, hypoxia, and PNA.
--- NOTE | 2021-02-13 11:32 | NUR ---
PT WAS TRANSPORTED VIA WC TO CT IN STABLE CONDITION WITH O2 ON BOARD ACCOMPANIED BY STAFF.
--- NOTE | 2021-02-13 12:00 | NUR ---
PT WAS STILL IN CT;TELE IS IN PLACE;WILL CONTINUE TO MONITOR WHEN RETURNING TO FLOOR.
[2021-02-13 15:04] VITALS: BP 113/54
--- NOTE | 2021-02-13 16:00 | NUR ---
PT WAS FOUND RESTING IN BED;TELE IS IN PLACE;O2@2L VIA NC IS IN PLACE;#22G IV IN TONEY IS RUNNING NS@75 ML/HR;IV SITE IS FREE OF COMPLICATIONS AT THIS TIME;PERDOMO CATHETER IN PLACE DRAINING CLEAR YELLOW URINE;SAFETY PRECAUTIONS IN PLACE;BED ALARM ON;CALL LIGHT WITHIN REACH;BED IN LOWEST POSITION;WILL CONTINUE TO MONITOR.
--- NOTE | 2021-02-13 16:05 | NUR ---
PER JASON PARK IN ED, PT CURRENTLY AFIB WITH RATE OF 120-130. D JULIAN ROBERTS NOTIFIED OF RHYTHM CHANGE/RATE. ORDERS OBTAINED FOR METOPROLOL TARTRATE 5 MG IV AND 25 MG PO X1 DOSE. ORDER ALSO PLACED FOR EKG.
--- NOTE | 2021-02-13 16:16 | NUR ---
TELE STRIP SHOWED TO Kedar FOSTER AT BEDSIDE OBTAINING EKG.
--- NOTE | 2021-02-13 16:20 | NUR ---
PT SON CALLED FOR AN UPDATE;HIS QUESTIONS WERE ALL ANSWERED AND HE HAD NO FURTHER QUESTIONS AT THE TIME.
--- NOTE | 2021-02-13 17:58 | NUR ---
IV SITE NOTED TO BE SWOLLEN. YUNG STOPPED IMMEDIATELY. ROGER BAUTISTA MADE AWARE OF SAME. SAME REMOVED.
--- NOTE | 2021-02-13 18:00 | NUR ---
NS BAG WAS REPLACED AND NOTICED AN AREA OF INFILTRATION/SWELLING;IV FLUIDS WERE STOPPED;IV REMOVED AND AN ICE PACK WAS PLACED;PT HAD NO COMPLAINTS OF PAIN;WILL CONTINUE TO MONITOR SITE AND A NEW IV WILL BE STARTED.
[2021-02-13 19:00] VITALS: BP 105/62
--- NOTE | 2021-02-13 23:59 | NUR ---
PT LAYING IN BED WITH EYES CLOSED, APPEARS TO BE SLEEPING, APPEARS COMFORTABLE AND IN NO DISTRESS. RESPIRATIONS REGULAR AND UNLABORED. ITEMS REMAIN WITHIN REACH, CALL FORTE REMAINS WITHIN REACH. BED REMAINS LOCKED AND IN LOW POSITION WITH BEDRAILS UP X2. WILL CONTINUE TO MONITOR.
[2021-02-14] VITALS: BP 132/63
[2021-02-14 04:00] VITALS: BP 96/49
[2021-02-14 05:40] LABS: HEMATOCRIT 32.6 % (37.0-47.0); HEMOGLOBIN 9.8 g/dl (12.0-16.0); MEAN CELL VOLUME 102.2 fL CALC (80.0-100.0); MEAN CORPUSCULAR HGB 30.7 pG CALC (26.0-32.0); MEAN CORPUSCULAR HGB CONC 30.1 g/dL CAL (32.0-36.0); RED BLOOD COUNT 3.19 mill/uL (4.20-5.60); RED CELL DISTRI WIDTH 13.9 % (11.5-15.5)
[2021-02-14 05:57] LABS: CREATININE 1.8 mg/dL (0.5-1.0); MAGNESIUM 1.8 mg/dL (1.6-2.3); POTASSIUM 4.8 mmol/l (3.5-5.1)
--- NOTE | 2021-02-14 07:15 | NUR ---
PT LAYING IN BED. A&O TO SELF (NAME ONLY), UNABLE TO STATE , CURRENT MONTH/YEAR, OR CURRENT LOCATION. DENIES ANY PAIN AT THIS TIME. O2 VIA NC @2L IN PLACE. #22G LAUREN IN PLACE, HEALTHY AND PATENT WITH NS INFUSING AT 75ML/HR. CLEAR./DIMINISHED BREATH SOUNDS HEARD UPON AUSCULTATION. ACADEMIC GUIDANCE SPECIALIST IN PLACE, CURRENTLY SR WITH [facility] PER [facility]. ACTIVE BOWEL SOUNDS X4 QUADS. PERDOMO CATHETER IN PLACE WITH CLEAR YELLOW URINE NOTED DRAINING VIA GRAVITY. PT ABLE TO FOLLOW SIMPLE COMMANDS. ASSESSMENT COMPLETED. DISCUSSED POC; REINFORCEMENT NEEDED. CALL LIGHT WITHIN REACH. BED ALARM IN PLACE FOR SAFETY.
[2021-02-14 07:25] VITALS: BP 95/49
[2021-02-14 10:30] VITALS: BP 123/64
--- NOTE | 2021-02-14 11:20 | NUR ---
PT SITTING IN BED. NO NEEDS AT THIS TIME. CALL LIGHT WITHIN REACH. BED ALARM IN PLACE FOR SAFETY. SON UPDATED ON CURRENT POC.
--- NOTE | 2021-02-14 13:59 | NUR ---
PT SITTING IN BED. NO DISTRESS NOTED. NO NEEDS AT THIS TIME. CALL LIGHT WITHIN REACH. BED ALARM IN PLACE FOR SAFETY.
[2021-02-14 15:34] VITALS: BP 100/48
--- NOTE | 2021-02-14 16:15 | NUR ---
BED ALARM GOING OFF. UPON ENTERING ROOM, PT OOB TRYING TO SIT ON THE BSC, PLEASANTLY CONFUSED. "I NEED TO PEE", REORIENTED PT AND EXPLAINED THAT PERDOMO CATHETER WAS IN PLACE. PT EASILY REORIENTED AND ASSISTED BACK INTO BED. CALL LIGHT LEFT WITHIN REACH. BED ALARM PLACED FOR SAFETY.
--- NOTE | 2021-02-14 17:00 | NUR ---
TALIB PT AT BEDSIDE WITH PT.
[2021-02-14 19:00] VITALS: BP 108/58
--- NOTE | 2021-02-14 21:55 | NUR ---
NEW ORDER RECIVED FROM PHYSICIAN FOR ZYPREXA 5MG IM BID NEEDED FOR INCREASED AGITATION. ORDER RECIVED FOR 2PT RESTRAINTS UNTIL SUCH TIME THE ZYPREXA EFFECTIVENESS IS NOTED AT WHICH TIME RESTRAINTS WILL BE DISCONTINUED. RESTRAINTS APPLIED AT APPROXIMATLEY 2200. SITTER ASSIGNED TO ROOM FOR THE TIME BEING UNTIL MEDICATION STARTS TO WORK. WILL MONITOR PT AND RESTRAINTS Q15 MIN UNTIL RESTRAINTS ARE DISCONTINUED.
--- NOTE | 2021-02-14 22:15 | NUR ---
PT RESTRIANTS CONTINUE, CIRCULATION TU BILATERAL UPPER EXTREMITIES REMAINS WNL. PT IS STARTING TO CALM DOWN AT THIS TIME. WILL MONITOR
--- NOTE | 2021-02-14 22:30 | NUR ---
PT REMAINS RESTRAINED. CIRCULATION WNL, PT IS RESTING ON AND OFF AT THIS TIME. TELE AND IV FLUIDS ON HOLD D/T PT ATTEMPTING TO RIP OUT IV AND WAS DISCONNECTING TELE WHILE RESTRAINED. ONCE MEDICATION IS EFFECTIVE TELE AND IV FLUIDS WILL RESUME. SAFETY PRECAUTIONS IN PLACE, BED ALARM REMAINS ACTIVE, BED IN LOWEST POSITION, SITTER AT THE BEDSIDE, AND CALL LIGHT WITHIN REACH.
--- NOTE | 2021-02-14 22:45 | NUR ---
PT REAMINS WITH SITTER AT BEDSIDE. 2 PT RESTARINTS REMAIN IN PLACE AT THIS TIME. NO S/S OF COMPLICATIONS RELATED TO RESTRAINTS. SAFETY PRECAUTIONS IN PLACE. WILL MONITOR.
--- NOTE | 2021-02-14 23:00 | NUR ---
PT REAMINS IN BED WITH RESTRAINTS APPLIED, NO COMPLICATIONS NOTED. SAFETY PRECAUTIONS IN PLACE, PT REMAINS CALM AT THIS TIME. WILL ATTEMPT TO RECONNECT IV AND TELE ON NEXT 15 MIN CHECK. WILL MONITOR
--- NOTE | 2021-02-14 23:15 | NUR ---
ATTEMPTED TO RECONNECT IV FLUIDS AND ADMINSTER IV ABT WITHOUT SUCCESS. PT IMMEDIATLEY STARTED PULLING ON IV LINES AGAIN. DISCONNECTED LINE PENDING DECREASED BEHAVIORS. RESTRINTS REMAIN IN PLACE, NO S/S OF COMPLICATIONS NOTED. WILL ATTEMPT IV AGAIN.
--- NOTE | 2021-02-14 23:30 | NUR ---
PT REAMINS IN BED WITH RESTRAINTS ON, NO COMPLICATIONS NOTED. SOME AGITATION REMAINS. SAFETY PRECAUTIONS IN PLACE, WILL MONITOR.
--- NOTE | 2021-02-14 23:45 | NUR ---
PT REAMINS COMBATIVE, CONFUSED, AND AGITATED. UNABLE TO APPLY TELE STILL AND ND UNABLE TYO RESUME IV THERAPY. 2 PT RESTRAINTS REMAIN IN PLACE WITHOUT ANY S/S OF COMPLICATIONS NOTED. SAFETY PRECAAUTIONS IN PLACE, WILL MONITOR.
--- NOTE | 2021-02-15 | NUR ---
PT REAMINS IN ROOM RESTRAINED TO BED DUE TO COBATIVE AND AGITATED BEHAVIORS. STILL UNABLE TO RECONNECT TELE AND IV FLUIDS. SAFETY PRECAUTIONS IN PLACE. WILL MONITOR
--- NOTE | 2021-02-15 00:15 | NUR ---
PT REMAINS SIGHTLY AGITATED, RESTRAINTS HAD LOOSENED ON THE BED, RESTRAINTS REAPPLIED PER ORDER FOR AGITATION AND SAFETY OF THE PATIENT. ABLE TO RECONNECT TELE AND RESTART IV FLUIDS, IV ABT RUNNING AT THIS TIME. NO COMPLICATIONS RELATED TO RESTRAINTS AT THIS TIME. WILL MONITOR
--- NOTE | 2021-02-15 00:30 | NUR ---
PT REMAINS RESTRAINED AT THIS TIME. BEHAVIORS CONTINUE, PT IS UNABLE TO GRAB AT ANY LINES AT THIS TIME. TELE REMAINS ON RUNNING SR IN THE 'S. IV FLUIDS CONTINUE. SAFETY PRECUATIONS IN PLACE, SITTER AT BEDSIDE. WILL MONITOR
--- NOTE | 2021-02-15 03:39 | NUR ---
RESTRAINTS RELEASED TO ALLOW PT TO ATTEMPT TO HAVE A BM ON BEDPAN, SOON RESTRINTS WERE REMOVED PT BEGAN PULLING AT PERDOMO, IV, AND TELE EQUIPMENT. BRUISE NOT TO LEFT WRIST/ LFA FROM PT PULLING ON RESTRAINTS. MASSAGED PT WRISTS AND VERIFIED APPROPRIATE BLOOD FLOW/CIRCULATION TO BILAT HANDS, ARMS, AND WRISTS. RESTRANTS REAPPLIED D/T PT PULLING ON MEDICAL DEVICES. PT WAS RESTING WITH HER HEAD DOWN UPON EXITING THE ROOM. SAFETY PRECAUTIONS IN PLACE, WILL CONTINUE TO MONITOR.
[2021-02-15 05:14] VITALS: BP 169/78
[2021-02-15 05:39] LABS: HEMATOCRIT 31.3 % (37.0-47.0); HEMOGLOBIN 9.6 g/dl (12.0-16.0); MEAN CELL VOLUME 100.6 fL CALC (80.0-100.0); MEAN CORPUSCULAR HGB 30.9 pG CALC (26.0-32.0); MEAN CORPUSCULAR HGB CONC 30.7 g/dL CAL (32.0-36.0); RED BLOOD COUNT 3.11 mill/uL (4.20-5.60); RED CELL DISTRI WIDTH 13.9 % (11.5-15.5)
--- NOTE | 2021-02-15 05:52 | NUR ---
PT REMAINS CONFUSED WITH AGITATION NOTED. PULLS AT IV, PERDOMO, AND TELE WHEN GIVEN THE OPPORTUNITY. NO S/S OF DISTRESS NOTED. NO ADVERSE EFFECTS RELATED TO CONTINUED RESTRAINTS. ZYPREXA THAT WAS GIVEN LAST NIGHT HAD NO EFFECT ON PT. SAFETY PRECAUTIONS IN PLACE, WILL CONTINUE TO MONITOR.
[2021-02-15 06:06] LABS: CREATININE 1.8 mg/dL (0.5-1.0); MAGNESIUM 1.8 mg/dL (1.6-2.3); POTASSIUM 4.6 mmol/l (3.5-5.1)
--- NOTE | 2021-02-15 06:41 | NUR ---
STAT EKG ORDERED ALONG WITH AN ADDITIONAL DOSE OF ZYPREXA. EKG COMPLETED BY RESP THERAPY. EKG SHOWED SR Laurie MD TO REVIEW EKG THIS AM WHEN HE ROUNDS. PENDING ARRIVAL OF ZYPREXA IM TO THE UNIT. WILL MONITOR
[2021-02-15 07:25] VITALS: BP 131/79
--- NOTE | 2021-02-15 07:30 | NUR ---
REPORT RECEIVED FROM COOPER MCRAE. PT RESTING IN BED SEMI FOWLERS; ALERT WITH CONFUSION; PULLING ON BILATERAL SOFT WRIST RESTRATINGS. DENIES PAIN; RESPIRATIONS EVEN AND UNLABORED ON OXYGEN 2L VIA NC. IV FLUIDS INFUSING WITHOUT DIFFICULTY; IV SITE TO LAUREN APPEARS HEALTHY. PERDOMO CATHETER DRAINING CLEAR, PALE YELLOW URINE. TELE ON. BLOOD PRESSURE SLIGHTLY ELEVATED THIS AM; RECHECKED AND SBP 131. STAFF AT BEDSIDE FOR CLOSER MONITORING AND SAFETY. ALL SAFETY MEASURES IN PLACE; NEEDS ANTICIPATED BY STAFF.
--- NOTE | 2021-02-15 08:00 | NUR ---
RESTRAINTS REMOVED FOR CARE AND BREAKFAST; SITTER REMAINS AT BEDSIDE FOR SAFETY AT THIS TIME. LOPRESSOR ADMINISTERED FOR HEART RATE AND BLOOD PRESSURE CONTROL. PT IS PLEASANT; REQUIRES CONSTANT REDIRECTION TO AVOID REMOVING ATTACHMENTS. WILL CONTINUE TO MONITOR.
--- NOTE | 2021-02-15 09:17 | NUR ---
PT CONTINUES WITH ELEVATED HEART RATE 110-160S; AFIB ON PUBLICATION DESIGNER. CARDIZEM PUSH ADMINSITERED AT THIS TIME; RENTAL CLERK NOTIFIED OF MEDICATION ADMINISTRATION. PT CONTINUES TO BE UNCOOPERATIVE AND ATTEMPTING TO GET OF BED FREQUENTLY. VERBAL CUES INEFFECTIVE; SITTER REMAINS AT BEDSIDE FOR SAFETY; BED ALARM ALSO ON.
--- NOTE | 2021-02-15 09:28 | NUR ---
HEART RATE NOW AT 91 AND RHYTHM APPEARS MORE REGULAR PER TIMBER SPOTTER.
--- NOTE | 2021-02-15 09:46 | NUR ---
DR. BRUNSON AND ALEJANDRA ORR AT BEDSIDE.
[2021-02-15 11:11] VITALS: BP 140/81
--- NOTE | 2021-02-15 12:35 | NUR ---
SINUS TACH ON TELEMETRY. PT REMAINS CONFUSED WITH MILD ANXIETY AND CONTINUES TO ATTEMPT TO GET OUT OF BED AND REMOVE ATTACHMENTS. ONE ON ONE STAFF MEMBER WITH PATIENT FOR SAFETY AND REDIRECTION. ZOSYN INFUSING.
--- NOTE | 2021-02-15 15:50 | NUR ---
PT NOW RESTING WITH EYES CLOSED AND NO SIGNS OF DISTRESS; PREVIOUSLY REMOVED OXYGEN AND IS CURRENTLY RESTING ON ROOM AIR; RESPIRATIONS EVEN AND UNLABORED. BED ALARM ON.
--- NOTE | 2021-02-15 16:13 | NUR ---
Patient did B LE strengthening exercises in seated and supine position doing SLR, seated hip adduction and abduction, seated hamstring curls, seated knee extension, bridging, and ankle AROM for 15 reps x 2 sets, followed by sit to stand transfers and log rolling bed mobility ADLs (patient did 5 reps each ADL skill) with constant verbal and tactile cuing (patient was combative earlier prior to participating with exercise and transfer protocol, needed significant amount of verbal cuing to calm patient into doing her B LE exercises). Therapist tried to speak to the patient about doing some gait walking with RW, but patient wasn't interested today.
[2021-02-15 17:25] VITALS: BP 146/80
[2021-02-15 19:43] VITALS: BP 153/85
--- NOTE | 2021-02-15 23:49 | NUR ---
PATIENT IS CURRENTLY RESTING QUIETLY IN BED WITH EYES CLOSED. ZOSYN INFUSING ORDERED. ON TELEMETRY. NO COMPLAINTS OF PAIN VERBALIZED. BED IN LOW POSITION. FALL PRECAUTIONS MAINTAINED. BED ALARM ON. CALL LIGHT WITHIN REACH.
[2021-02-16] VITALS (7 sets, daily range): BP systolic 140–179; BP diastolic 71–88
[2021-02-16 06:42] LABS: HEMATOCRIT 29.4 % (37.0-47.0); HEMOGLOBIN 8.9 g/dl (12.0-16.0); MEAN CELL VOLUME 102.1 fL CALC (80.0-100.0); MEAN CORPUSCULAR HGB 30.9 pG CALC (26.0-32.0); MEAN CORPUSCULAR HGB CONC 30.3 g/dL CAL (32.0-36.0); RED BLOOD COUNT 2.88 mill/uL (4.20-5.60); RED CELL DISTRI WIDTH 14.1 % (11.5-15.5)
[2021-02-16 07:18] LABS: CREATININE 1.6 mg/dL (0.5-1.0); MAGNESIUM 1.7 mg/dL (1.6-2.3); POTASSIUM 4.8 mmol/l (3.5-5.1)
--- NOTE | 2021-02-16 07:30 | NUR ---
REPORT RECEIVED FROM LILY MATTSON. PT RESTING IN BED ON HER SIDE WITH EYES CLOSED AND NO SIGNS OF DISTRESS; RESPIRATIONS EVEN AND UNLABORED ON ROOM AIR. AWAKENS TO VERBAL STIMULI; ALERT AND ORIENTED TO PERSON ONLY; PLEASANTLY CONFUSED. DENIES PAIN. IV FLUIDS INFUSING WITHOUT DIFFICULTY; IV SITE APPEARS HEALTHY. SAFETY MEASURES IN PLACE INCLUDING BED ALARM. CALL LIGHT WITHIN REACH.
--- NOTE | 2021-02-16 08:13 | NUR ---
DR. BRUNSON AND ALEJANDRA ORR AT BEDSIDE.
--- NOTE | 2021-02-16 08:30 | NUR ---
BLOOD PRESSURE ELEVATED; SCHEDULED MEDICATIONS GIVEN. PT REPOSITIONED INTO [facility] FOWLERS FOR BREAKFAST.
--- NOTE | 2021-02-16 09:55 | NUR ---
WALK TEST PERFORMED. OXYGEN TO 87% WITH MILD EXERTION.
--- NOTE | 2021-02-16 10:12 | NUR ---
SPO2 IS 90% WHEN RESTING ON ROOM AIR. OXYGEN WALK TEST COMPLETED; SPO2 DECREASED TO 87% ON ROOM AIR. OXYGEN APPLIED AT 2L VIA NC; SPO2 INCREASED TO 96%. WILL CONTINUE TO MONITOR ON OXYGEN.
--- NOTE | 2021-02-16 10:33 | NUR ---
UP TO BEDSIDE CHAIR; IV FLUIDS NOW INFUSING AT O. PERDOMO CATHETER DISCONTINUED.
--- NOTE | 2021-02-16 10:59 | NUR ---
IMELDA COBURN, CALLED FOR UPDATE.
--- NOTE | 2021-02-16 12:19 | NUR ---
OFF UNIT VIA WHEELCHAIR FOR CHEST XRAY.
--- NOTE | 2021-02-16 12:35 | NUR ---
RETURNED TO ROOM IN STABLE CONDITION; RECONNECTED TO [facility]. DR. BRUNSON AT BEDSIDE.
--- NOTE | 2021-02-16 13:09 | NUR ---
LAB AT BEDSIDE. IV FLUIDS DECREASED TO KVO PER VERBAL ORDER.
--- NOTE | 2021-02-16 17:00 | NUR ---
TO BSC FREQUENTLY FOR VOIDS AFTER LASIX WAS ADMINISTERED. FOUND ONCE AMBULATING IN ROOM; REMINDED TO USE CALL LIGHT; PT REMAINS PLEASANTLY CONFUSED.
[2021-02-17 00:19] VITALS: BP 138/75
[2021-02-17 03:14] VITALS: BP 147/70
[2021-02-17 05:45] LABS: HEMOGLOBIN 8.9 g/dl (12.0-16.0); MEAN CELL VOLUME 102.1 fL CALC (80.0-100.0); MEAN CORPUSCULAR HGB 31.3 pG CALC (26.0-32.0); MEAN CORPUSCULAR HGB CONC 30.7 g/dL CAL (32.0-36.0); RED BLOOD COUNT 2.84 mill/uL (4.20-5.60); RED CELL DISTRI WIDTH 14.3 % (11.5-15.5)
[2021-02-17 06:04] LABS: CREATININE 1.7 mg/dL (0.5-1.0); POTASSIUM 4.2 mmol/l (3.5-5.1)
--- NOTE | 2021-02-17 07:00 | NUR ---
PT REPORT RECEIVED FROM NIGHT NURSEANASTACIO
[2021-02-17 08:00] VITALS: BP 139/70
--- NOTE | 2021-02-17 08:00 | NUR ---
PT WAS FOUND RESTING IN BED;PT IS ALERT, BUT CONFUSED;PT DOES KNOW NAME BUT NOT DATE, TIME OR PLACE;VS AND ASSESSMENT WERE COMPLETED;HEART SOUNDS ARE REGULAR IN RATE AND RHYTHM;LUNG SOUNDS ARE CLEAR AND DIMINISHED IN LOWER LOBES;RESPIRATIONS ARE EVEN AND UNLABORED ON O2@2L VIA NC;TELE IS IN PLACE;#22G IV IN RFA IS RUNNING NS@10ML/HR;IV SITE IS FREE OF COMPLICATIONS AT THIS TIME;SAFETY PRECAUTIONS IN PLACE;BED ALARM ON;CALL LIGHT WITHIN REACH;BED IN LOWEST POSITION;WILL CONTINUE TO MONITOR.
[2021-02-17] MEDS ORDERED: DOXYCYCL HYC100 MG PO (10:57)
[2021-02-17] MEDS ORDERED: LASIX 20 MG TAB20 MG PO (10:57)
[2021-02-17] MEDS ORDERED: ELIQUIS2.5 MG PO (10:57)
[2021-02-17] MEDS ORDERED: MEDDOSEPAK PO (10:57)
[2021-02-17 11:07] VITALS: BP 143/78
[2021-02-17 11:28] VITALS: BP 143/78
--- NOTE | 2021-02-17 12:00 | NUR ---
PT WAS FOUND RESTING IN BED;TELE IS IN PLACE;PT HAS NO REPORTS OF PAIN AT THIS TIME;O2 WAS REMOVED IN ANTICIPATION OF DC; SAFETY PRECAUTIONS IN PLACE;BED ALARM ON;CALL LIGHT WITHIN REACH;BED IN LOWEST POSITION;WILL CONTINUE TO MONITOR.
--- NOTE | 2021-02-17 12:29 | NUR ---
Discharge instructions given. Patient verbalizes understanding of same. Discharged in stable condition via Wheelchair to *Other with *Other. All belongings sent with pt. PT DISCHARGE PACKET WITH PRESCRIPTIONS WAS SENT WITH PT TO [facility];DISCHARGE INSTRUCTIONS WERE EXPLAINED TO PT, BUT PT IS CONFUSED;SIGNATURE FOR DC WAS OBTAINED; PT TELE WAS REMOVED;IV WAS REMOVED WITH NO COMPLICATIONS AND CATHETER INTACT;ALL PT BELONGINGS WERE SENT WITH PT;PT WAS TRANSPORTED VIA WC IN STABLE CONDITION TO [facility];PT WILL BE TRANSPORTED TO [facility] WITH STAFF.
== END 2021-02-17 12:29 | DRG 193 ==
LOC: ED 10:17 → ED-I 16:30 → ED 16:45 → MS2 16:46
PROVIDERS: Emergency Medicine; Internal Medicine; Nurse Practitioner; ADMIT Internal Medicine; ATTEND Internal Medicine
PROC: 0T9B70Z Drainage of Bladder with Drainage Device, Via Natural or Artificial Opening (ICD-10-PCS; principal; 2021-02-11)
DX: J18.9 Pneumonia, unspecified organism (principal); J96.01 Acute respiratory failure with hypoxia; J44.0 Chronic obstructive pulmonary disease with (acute) lower respiratory infection; I13.0 Hypertensive heart and chronic kidney disease with heart failure and stage 1 through stage 4 chronic kidney disease, or unspecified chronic kidney disease; I50.32 Chronic diastolic (congestive) heart failure; G93.40 Encephalopathy, unspecified; N18.30 Chronic kidney disease, stage 3 unspecified; I48.0 Paroxysmal atrial fibrillation; I07.1 Rheumatic tricuspid insufficiency; I27.20 Pulmonary hypertension, unspecified; I95.9 Hypotension, unspecified; E78.5 Hyperlipidemia, unspecified; F41.9 Anxiety disorder, unspecified; F03.90 Unspecified dementia, unspecified severity, without behavioral disturbance, psychotic disturbance, mood disturbance, and anxiety; M10.9 Gout, unspecified; Z87.891 Personal history of nicotine dependence; Z20.822 Contact with and (suspected) exposure to COVID-19
CPT/HCPCS: A9540; S0166

== ENCOUNTER 2021-03-04 18:34 | Observation (INO) | payer MEDICARE, OTHER ==
[~2021-03-04] VITALS: Ht 162.6 cm; Wt 49.0 kg
[~2021-03-04 18:34] MED LIST changes: +DOXYCYCL HYC100 MG PO; +ELIQUIS2.5 MG PO; +LASIX 20 MG TAB20 MG PO
--- NOTE | 2021-03-04 18:34 | NUR ---
TO ROOM FOR TRIAGE
--- NOTE | 2021-03-04 19:10 | NUR ---
CARE ASSUMED, PT RESTING,C ALL FORTE WITHIN REACH
[2021-03-04 19:36] LABS: HEMOGLOBIN 9.3 g/dl (12.0-16.0); IMMATURE GRANULOCYTES 0.5 % (0.0-5.0); MEAN CORPUSCULAR HGB 30.7 pG CALC (26.0-32.0); NEUT# 7.63 thou/uL (2.00-7.15); RED BLOOD COUNT 3.03 mill/uL (4.20-5.60); RED CELL DISTRI WIDTH 14.6 % (11.5-15.5)
[2021-03-04 19:47] LABS: ALKALINE PHOSPHATASE 85 u/l (38-126); BILIRUBIN, TOTAL 0.7 mg/dL (0.0-1.4); BUN 18 mg/dL (8-23); BUN/CREATININE RATIO 12 (12-20 (CALC)); CARBON DIOXIDE 25 mmol/l (22-30); CREATININE 1.4 mg/dL (0.5-1.0); GFR 36 ML/MIN (>=60 (CALC)); GFR FOR AFR.AMER. 44 ML/MIN (>=60 (CALC)); LIPASE 128 u/l (23-300); POTASSIUM 4.2 mmol/l (3.5-5.1); SGOT/AST 26 u/l (9-36)
[2021-03-04 19:50] LABS: ALBUMIN 3.2 g/dL (3.2-5.0); ANION GAP 10 (6-22 (CALC)); CHLORIDE 100 mmol/l (95-108); SODIUM 131 mmol/l (137-146); TOTAL PROTEIN 6.5 g/dL (6.3-8.2)
--- NOTE | 2021-03-04 19:54 | NUR ---
SPOKE WITH SON AND DAUGHTER VIA 3 WAY PHONE CALL. INFORMED THAT THEY WOULD BE UPDATED REGARDING POC ONCE TESTING COMPLETE AND MD REVIEWS. SON REMINDED THIS NURSE THAT HIS MOM HAS DEMENTIA AND IS CONFUSED AND THAT HE IS POA.
--- NOTE | 2021-03-04 20:55 | NUR ---
PT RESTING AWARE OF PLANNED ADMISSION, WILL CALL SON AND DAUGHTER PER THEIR REQUEST.
--- NOTE | 2021-03-04 22:00 | NUR ---
PT RESTING ASKING ABOUT WHEN SHE WILL GO UP TO HER ROOM SHE IS COLD BALNKETS PROVIDED.
--- NOTE | 2021-03-04 23:10 | NUR ---
PT RESTING ON STRETCHER WATCHING TELEVISION. NO S/S OF DISTRESS OR DISCOMFORT, CALL JANN CARDOSOINR EACH.
[2021-03-04 23:45] VITALS: BP 155/83
--- NOTE | 2021-03-04 23:45 | NUR ---
REPORT CALLED TO MARCIE BAUTISTA ON MED SURG, [id number] ASSIGNED, PT TRASNPORTED VIA WHEELCHAIR BY WOOD PATTERN MAKER RELATED TO BUSY E.R.
--- NOTE | 2021-03-05 00:03 | NUR ---
PATIENT ARRIVED AT 2345 VIA WHEELCHAIR. PATIENT IS ALERT AND ORIENTED TO SELF. RESP EVEN AND UNLABORED. NO S/S OF DISTRESS NOTED. FALL AND SAFTEY PRECAUTIONS IN PLACE. SR ON TELE. PATIENT ORIENTED TO BED, ROOM, AND CALL LIGHT. URINE COLLECTED AT THIS TIME. PLAN OF CARE DISCUSSED. PATIENT INFORMED TO CALL WITH ANY QUESTIONS OR CONCERNS. IV SALINE LOCKED. ASA GIVEN PER MD ORDERS ONCE ARRIVED ON UNIT. NON-SKID SOCKS APPLIED.
[2021-03-05 00:58] LABS: URINE BILIRUBIN - DIPSTICK NEGATIVE (NEGATIVE); URINE BLOOD DIPSTICK NEGATIVE (NEGATIVE); URINE COLOR YELLOW; URINE GLUCOSE - DIPSTICK NEGATIVE (NEGATIVE); URINE KETONE NEGATIVE (NEGATIVE); URINE LEUK ESTERASE NEGATIVE (NEGATIVE); URINE PROTEIN - DIPSTICK TRACE mg/dL (NEG-TRACE); URINE SPECIFIC GRAVITY 1.015; URINE UROBILINOGEN - DIPSTICK 0.2 E.U./dL (0.2)
[2021-03-05 01:03] LABS: URINE NITRITE - DIPSTICK NEGATIVE (Negative)
[2021-03-05 03:32] VITALS: BP 139/78
--- NOTE | 2021-03-05 04:06 | NUR ---
PATIENT RESTING WITH EYES CLOSED. RESP EVEN AND UNLABORED. NO S/S OF DISTRESS NOTED. FALL AND SAFTEY PRECAUTIONS IN PLACE.
[2021-03-05 06:35] LABS: CREATININE 1.3 mg/dL (0.5-1.0); POTASSIUM 4.5 mmol/l (3.5-5.1)
[2021-03-05 08:03] VITALS: BP 166/81
--- NOTE | 2021-03-05 08:03 | NUR ---
PT RESTING IN SEMI FOLWERS POSITION. PT IS A/O X1. ASSESSMENT AND VITALS COMPLETED. BP 166/81, HR 104, O2 93% ON ROOM AIR. RESPIRATIONS ARE EVEN AND UNLABORED WITH NO DISRTESS NOTED. LUNG SOUNDS ARE DIMINISHED. BOWEL SOUNDS ARE ACTIVE. PT UNABLE TO STATE LAST BM. HEART RHYTHM NORMAL WITH TELE IN PLACE, ST PER ER MONITORING. RADIAL AND PEDAL PULSES STRONG. #20G EMS IN [facility], SITE REMAINS HEALTHY AND PATENT. PT EDUCATED ON NEED TO CHANGE TODAY. PT VERBLAIZED UNDERSTANDING. SKIIN INTACT. PT DENIES OF ANY PAINS OR DISCOMFORTS AT THIS TIME. ALL SAFETY PRECAUTIONS ARE IN PLACE WITH CALL LIGHT IN REACH AND BED ALARM ACTIVATED. PT INSTRUCTED TO CALL FOR ASSISTANCE. PT VRBLAIZED UNDERSTANDING. WILL CONTINUE TO MONITOR.
--- NOTE | 2021-03-05 08:20 | NUR ---
LAB AT BEDSIDE
--- NOTE | 2021-03-05 09:50 | NUR ---
SPEECH THERAPIST AT BEDSIDE
--- NOTE | 2021-03-05 10:03 | NUR ---
SPOKE WITH [facility] LIVING ON STATUS OF PT.
--- NOTE | 2021-03-05 10:04 | NUR ---
DR BRUNSON AT BEDSIDE
--- NOTE | 2021-03-05 10:15 | NUR ---
PT TRANSPORTED TO CT VIA WHEELCHAIR IN STABLE CONDITION ACCOMPAINED BY MARIANA CLEMENTS
--- NOTE | 2021-03-05 10:45 | NUR ---
[facility] CONTACT FOR UPDATE OF PTCristine
[2021-03-05 11:18] VITALS: BP 134/69
--- NOTE | 2021-03-05 11:50 | NUR ---
PT TRANSPORTED TO [facility] FOR BARIUM SWALLOW TEST VIA WHEELCHAIR IN STABLE CONDITION ACCOMPAINED BY PATRICIO.
--- NOTE | 2021-03-05 12:10 | NUR ---
PT ARRIVED BACK TO [facility] ROOM 270 IN STABLE CONDITION. PT ASSISTED BACK INTO BED. IV ANTIBIOTICS INFUSING WITH EASE. PT DENIES OF ANY PAINS OR DISCOMFORTS. ALL SAFETY PRECAUTIONS ARE IN PLACE WITH CALL LIGHT IN REACH AND BED ALARM ACTIVATED. WILL CONTINUE TO MONITOR
[2021-03-05 15:53] VITALS: BP 141/73
--- NOTE | 2021-03-05 15:59 | NUR ---
PT RESTING IN SEMI FOWLERS POSITIION WITH EYES CLOSED. RESPIRATIONS ARE EVEN AND UNLABORED WITH NO DISTRESS NOTED. #20G IN LAC REMAINS IN PLACE. NO SIGNS OF ANY PAINS OR DISCOMFORTS AT THIS TIME. ALL SAFETY PRECAUTIONS ARE IN PLACE WITH CALL LIGHT IN REACH. WILL CONTINUE TO MONITOR.
--- NOTE | 2021-03-05 16:45 | NUR ---
ATTEMPTED TO START NEW IV. FAILED X2. #20G LAC REMAINS IN PLACE. SITE REMAINS HEALTHY AND PATENT.
--- NOTE | 2021-03-05 16:53 | NUR ---
SON CALLED FOR UPDATE OF PT. SON DENIES OF ANY QUESTIONS OR CONCERNS.
[2021-03-05 19:00] VITALS: BP 118/64
--- NOTE | 2021-03-05 19:10 | NUR ---
#20G IN LFA INFILTRATED. NEW #22G IN RFA STARTED BY LILY BERRY. SITE APPEARS HEALTHY AND PATENT.
--- NOTE | 2021-03-05 19:10 | NUR ---
DAY NURSE IN WITH PT OBTAINING NEW IV SITE ACCESS. STATES THAT ORIGINAL EMS SITE INFILTRATED TO LAC/SITE APPEARS HEALTHY, ORIGINAL IV REMOVED INTACT. PT TOLERATED NEW ACCESS WELL, PLEASANTLY CONFUSED AT THIS TIME.
--- NOTE | 2021-03-05 21:03 | NUR ---
PT SET BED ALARM OFF, ASSISTED HER TO RESTROOM AND BACK TO THE BED. ASSESSMENT COMPLETED AT THIS TIME, PT REFUSES TO REMOVE JEANS "BECAUSE I AM COLD" MULTIPLE LAYERS OF BLANKETS ARE ON PT AT THIS TIME. PT MEDICATED AT THIS TIME W/PM MEDICATIONS ORDERS PROVIDE. PT WAS LOC TO SELF ONLY AND GOT INCORRECT. REORIENTED HER TO THE CALL LIGHT, BUT BED ALARM PLACED ON FOR SAFETY PROTOCOL DUE TO CONFUSION. PT PLEASANTLY CONFUSED.
--- NOTE | 2021-03-05 23:19 | NUR ---
pt was sleeping, awoke to my entering the room. Iv antibiotic therapy administered at this time. iv site flushed patent and appears healthy. pt returning back to sleep. call light at side and bed alarm on.
[2021-03-05 23:30] VITALS: BP 99/52
--- NOTE | 2021-03-06 02:49 | NUR ---
PT APPEARS TO BE SLEEPING, MAKING SLIGHT SONOROUS SOUNDS, NO S/O DISTRESS NOTED. CALL LIGHT IS AT SIDE AND BED ALARM IS ON.
[2021-03-06 04:00] VITALS: BP 115/64
[2021-03-06 04:38] LABS: HEMATOCRIT 29.9 % (37.0-47.0); HEMOGLOBIN 9.3 g/dl (12.0-16.0); MEAN CELL VOLUME 98.7 fL CALC (80.0-100.0); MEAN CORPUSCULAR HGB 30.7 pG CALC (26.0-32.0); MEAN CORPUSCULAR HGB CONC 31.1 g/dL CAL (32.0-36.0); RED BLOOD COUNT 3.03 mill/uL (4.20-5.60); RED CELL DISTRI WIDTH 14.7 % (11.5-15.5)
[2021-03-06 04:56] LABS: CREATININE 1.6 mg/dL (0.5-1.0); MAGNESIUM 1.8 mg/dL (1.6-2.3); POTASSIUM 4.4 mmol/l (3.5-5.1)
--- NOTE | 2021-03-06 04:56 | NUR ---
PT UP TO RESTROOM AND BACK TO BED. CHASER TAR REPORTED THAT THE PT'S R.HAND IS EDEMATOUS. NO IVF IS RUNNING. NO S/O INFILTRATION TO IV SITE. HAND ELEVATED ON PILLOW. PT DENIES PAIN OR DISCOMFORT.
--- NOTE | 2021-03-06 07:00 | NUR ---
RECIEVED REPORT FROM LILY TRAYLOR
[2021-03-06 07:22] VITALS: BP 115/55
--- NOTE | 2021-03-06 07:22 | NUR ---
PT RESTING IN LOW FOWLERS POSITION ON RIGHT SIDE. PT IS A/O X1 AND UNCOOPERATIVE.LIMITED ASSESSMENT AND VITALS COMPLETED. BP 115/55, HR 94, O2 93% ON ROOM AIR. RESPIRATIONS ARE EVEN AND UNLABORED. LUNG SOUNDS CLEAR. PT REFUSES TO ALLOW SENIOR SCRUM MASTER TO ASCULTATE HEART AND ABD. RADIAL AND PEDAL PULSES STRONG. PT REFUSES TO ALLOW SENIOR SCRUM MASTER ASSESS IV SITE. SWELLING TO RIGHT WRIST REPORTING DURING NIGHT. PT REFUSES TO ALLOW SENIOR SCRUM MASTER TO ASSESS. PT DENIE SOF ANY NEEDS AND STATES " YOU HAVE DONE ENOUGH." ALL SAFETY PRECAUTIONS ARE IN PLACE WITH CALL LIGHT IN REACH AND BED ALARM ACTIVATED. WILL CONTINUE TO MONITOR.
--- NOTE | 2021-03-06 08:50 | NUR ---
ATTEMPTED TO ADMINISTERED MORNING MEDICATRIONS. PT REFUSED. SPEECH THERAPIST EDUCATED PT ON MEDICATIONS AND THE NEED OF THEM. AFTER SEVERAL MINUETS OF ENCOURAGING PT, PT AGREED.
--- NOTE | 2021-03-06 09:10 | NUR ---
PT RESTING IN SEMI FOWLERS. WEBSITE PROGRAMMER REQUEST TO LOOK AT IV AND WRIST. PT STATES " YOU HAVE DONE ENOUGH.LOOK WHAT YOU DID" WEBSITE PROGRAMMER ENSURED PT THAT WRIST BECAME SWOLLEN DURING THE NIGHT AND WEBSITE PROGRAMMER WAS INFORMED IN REPORT THAT THE CAUSE WAS UNKOWN. WEBSITE PROGRAMMER WAS ABLE TO VISUALIZED WRIST, REDNESS AND TENDERNESS NOTED. WEBSITE PROGRAMMER EXPLAINED TO PT THAT IT WAS NOT CAUSED BY IV DUE TO HAVING A GOOD BLOOD RETURN AND THE LOCATION. PT VERBALIZED UNDERSTANDING AND BECAME MORE COOPERATIVE.
--- NOTE | 2021-03-06 09:44 | NUR ---
DR BRUNSON AT BEDSIDE
[2021-03-06 11:00] VITALS: BP 107/54
--- NOTE | 2021-03-06 12:14 | NUR ---
PT RESTING IN SEMI FOWLERS POSITION. RESPIRATIONS ARE EVEN AND UNLABORED WITH NO DISTRESS NOTED. PT REAMINS A/O X1.TELE MONITORING IN PLACE. #22G IN RFA INFUSING WITH IVF ANTIBIOTICS, SITE REMAINS HEALTHY AND PATENT. TRACE EDEMA NOTED TO RIGHT WRIST. PT APOLIGIZES TO COLLECTIONS ATTORNEY FOR THIS MORNING. PT STATES "I DONT KNOW WHAT THAT MAN WANTED WHEN HE CAME IN MY ROOM. " COLLECTIONS ATTORNEY ENSURED THERE WAS NO MAN. ALL SAFETY PRECAUTIONS ARE IN PLACE WITH CALL LIGHT IN REACH AND BED ALARM ACTIVATED. WILL CONTINUE TO MONITOR.
[2021-03-06 15:02] VITALS: BP 95/50
--- NOTE | 2021-03-06 15:43 | NUR ---
PT SLEEPING IN SEMI FOWLERS POSITION. RESPIRATIONS ARE EVEN AND UNLABORED WITH NO SIGNS OF DISTRESS ON ROOM AIR. #22G IN RFA REMAINS IN PLACE. TELE MONITORING IN PLACE. NO SIGNS OF ANY PAINS OR DISCOMFORTS. ALL SAFETY PRECAUTIONS ARE IN PLACE WITH CALL LIGHT IN REACH, BED ALARM ACTIVE. WILL CONTINUE TO MONITOR.
[2021-03-06 19:00] VITALS: BP 98/57
--- NOTE | 2021-03-06 19:10 | NUR ---
UPON ENTERING ROOM, PT HELD HER ARMS OPEN WIDE ASKING FOR A BIG HUG/PROVIDED. SHE IS SMILING, DENIES DISTRESS OF ANY KIND. ASSESSMENT COMPLETED AT THIS TIME, SEE CHARTING.
--- NOTE | 2021-03-06 22:04 | NUR ---
PT MEDICATED AT THIS TIME. NO S/O DISTRESS. SNACK/JUICE OFFERED, DENIED STATING "I HAVE ALL OF THAT HER" POINTING TO HER BST THAT ONLY HAS ONE CUP OF WATER ON IT. PT LOC TO NAME ONLY. I REMINDED HER THAT SHE HAS A BIRTHDAY IN TWO DAYS BUT SHE WAS NOT ABLE TO TELL ME HER AT THIS TIME. DENIES PAIN OR ANY OTHER DISTRESSES. REORIENTED HER TO THE CALL LIGHT, TV IS ON WITH LIGHTS TURNED LOW. SHE IS VERY PLEASANTLY CONFUSED THIS EVENING.
--- NOTE | 2021-03-07 | NUR ---
PT OBSERVED IN BED WITH EYES CLOSED, NO S/O DISTRESS NOTED. BED ALARM IS ON.
--- NOTE | 2021-03-07 00:35 | NUR ---
ANTIBIOTIC THERAPY ADMINISTERED AT THIS TIME. NO S/O DISTRESS. PT WAS SLEEPING, AWOKE TO MY VOICE AND PROMPTLY RETURNED BACK TO SLEEP.
[2021-03-07 04:19] VITALS: BP 119/71
--- NOTE | 2021-03-07 04:44 | NUR ---
LAB IN WITH PT, SHE REFUSED LAB DRAW BECOMING AGITATED. WE ASSISTED HER TO RESTROOM AND BACK TO THE BED. V/S ASSESSED AT THIS TIME. SHE APPEARS CALM, BUT STILL REFUSED LAB DRAW.
--- NOTE | 2021-03-07 05:08 | NUR ---
PT MEDICATED W/IV ANTIBIOTIC THERAPY. I OFFERED JUICE/PROVIDED. PT PLEASANTLY CONFUSED, BUT STILL REFUSED TO HAVE LABS DRAWN AT THIS TIME.
[2021-03-07 08:00] VITALS: BP 122/62
--- NOTE | 2021-03-07 08:00 | NUR ---
ASSESSMENT IS COMPLETED: IV SITE IS FREE FROM REDNESS OR EDEMA. HR IS REG,PULSES ARE STRONG X4, ABD IS SOFT WITH ACTIVE BS. BREATH SOUNDS ARE CLEAR,BILATERALLY, NO C/O SOB. TELE MONITOR IN PLACE. IN A PLEASANT MOOD TODAY., CONTINUE TO OSBERVE AND MONITOR.
--- NOTE | 2021-03-07 08:25 | NUR ---
PRELIM BLOOD CX RESULTS SHOW GRAM POSITIVE COCCI IN 1 OF 4 VIALS. REPORTED TO MARITO. WILL F/U WITH FINAL
[2021-03-07 08:44] LABS: HEMATOCRIT 31.6 % (37.0-47.0); HEMOGLOBIN 9.8 g/dl (12.0-16.0); MEAN CELL VOLUME 98.8 fL CALC (80.0-100.0); MEAN CORPUSCULAR HGB 30.6 pG CALC (26.0-32.0); RED BLOOD COUNT 3.2 mill/uL (4.20-5.60); RED CELL DISTRI WIDTH 14.6 % (11.5-15.5)
[2021-03-07 09:06] LABS: CREATININE 1.8 mg/dL (0.5-1.0); MAGNESIUM 1.9 mg/dL (1.6-2.3)
[2021-03-07 10:33] VITALS: BP 101/59
[2021-03-07] MEDS ORDERED: ELIQUIS2.5 MG PO (11:57)
--- NOTE | 2021-03-07 12:00 | NUR ---
IV SITE DISCONTINUED, CATHETER INTACT. INFORMED PT OF GOING BACK TO [facility]. VERY EXCITED ABOUT GOING BACK.
[2021-03-07] MEDS ORDERED: NORVASC5 M1 PO (12:01)
[2021-03-07] MEDS ORDERED: FUROSEMIDE20 MG PO (12:13)
[2021-03-07] MEDS ORDERED: DOXYCYCL HYC100 MG PO (12:13)
--- NOTE | 2021-03-07 12:34 | NUR ---
IV SITE BEGAN LEAKING INFORMED DR BRUNSON , NO NEED TO RESTART PT IS BEING DISCHARGED.
--- NOTE | 2021-03-07 12:49 | NUR ---
ATTEMPTED TO CALL [facility] NO ANSWER
--- NOTE | 2021-03-07 13:56 | NUR ---
SPOKE WITH KELLEY AT THE [facility]. WILL NOT BE ABLE TO WOODS SUPERINTENDENT PT UNTIL MEDICATIONS ARE RESOLVED. SENT [facility] FOR THE MEDS TO BE GIVEN THAT WAS STOPPED. WAS CALLED AGAIN AND INQUIRED ABOUT SOMETHING IN WRITING ABOUT A MEDICATION THAT WAS STOPPED , BECAUSE THEY HAVE HER ON THE MED. THEIR PHARMACY WILL NOT ACCEPT A DISCHARGE INSTRUCTIONS DUE TO NO SIGNATURE.
--- NOTE | 2021-03-07 14:19 | NUR ---
SPOKE WITH KELLEY. WILL BE HERE TO DIGITAL SALES REPRESENTATIVE PT IN 5 MINUTES. RECEIVED ALL INFORMATION FROM DR BRUNSON.
--- NOTE | 2021-03-07 14:30 | NUR ---
DISCHARGE INSTRUCTIONS FAXED TO [facility] AND SENT VIA PACKET. Discharge instructions given. Patient verbalizes understanding of same. Discharged in stable condition via Wheelchair to *Other with *Other. All belongings sent with pt.
== END 2021-03-07 14:30 ==
LOC: ED 18:34 → ED-I 20:38 → MS2 20:58 → ED 20:58 → MS2 23:45
PROVIDERS: Family Medicine; Nurse Practitioner; ADMIT Internal Medicine; ATTEND Internal Medicine
DX: J18.9 Pneumonia, unspecified organism (principal); J44.0 Chronic obstructive pulmonary disease with (acute) lower respiratory infection; R07.9 Chest pain, unspecified; E87.1 Hypo-osmolality and hyponatremia; I13.0 Hypertensive heart and chronic kidney disease with heart failure and stage 1 through stage 4 chronic kidney disease, or unspecified chronic kidney disease; I50.9 Heart failure, unspecified; N18.30 Chronic kidney disease, stage 3 unspecified; I48.0 Paroxysmal atrial fibrillation; E78.5 Hyperlipidemia, unspecified; F41.9 Anxiety disorder, unspecified; F03.90 Unspecified dementia, unspecified severity, without behavioral disturbance, psychotic disturbance, mood disturbance, and anxiety; F32.9 Major depressive disorder, single episode, unspecified; M10.9 Gout, unspecified; Z87.891 Personal history of nicotine dependence; Z87.01 Personal history of pneumonia (recurrent); Z90.5 Acquired absence of kidney; Z79.01 Long term (current) use of anticoagulants; Z20.822 Contact with and (suspected) exposure to COVID-19
CPT/HCPCS: G0378

== ENCOUNTER 2021-05-30 08:41 | Observation (INO) | payer MEDICARE, OTHER ==
[~2021-05-30 08:41] MED LIST changes: +NORVASC5 M1 PO
[2021-05-30 09:23] LABS: IMMATURE GRANULOCYTES 0.3 % (0.0-5.0); MEAN CORPUSCULAR HGB 31.3 pG CALC (26.0-32.0); MEAN CORPUSCULAR HGB CONC 30.9 g/dL CAL (32.0-36.0); NEUT# 5.19 thou/uL (2.00-7.15); RED BLOOD COUNT 3.84 mill/uL (4.20-5.60); RED CELL DISTRI WIDTH 14.7 % (11.5-15.5)
[2021-05-30 09:25] LABS: HEMATOCRIT 38.8 % (37.0-47.0)
[2021-05-30 09:43] LABS: ALBUMIN 3.7 g/dL (3.2-5.0); ALKALINE PHOSPHATASE 86 u/l (38-126); BUN 34 mg/dL (8-23); BUN/CREATININE RATIO 19 (12-20 (CALC)); CARBON DIOXIDE 27 mmol/l (22-30); CHLORIDE 106 mmol/l (95-108); CREATININE 1.8 mg/dL (0.5-1.0); GFR 27 ML/MIN (>=60 (CALC)); GFR FOR AFR.AMER. 33 ML/MIN (>=60 (CALC)); LIPASE 287 u/l (23-300); SGOT/AST 27 u/l (9-36); TOTAL PROTEIN 6.7 g/dL (6.3-8.2)
[2021-05-30 09:44] LABS: ANION GAP 11 (6-22 (CALC)); BILIRUBIN, TOTAL 0.4 mg/dL (0.0-1.4); POTASSIUM 5.1 mmol/l (3.5-5.1); SODIUM 139 mmol/l (137-146)
[2021-05-30 15:15] VITALS: BP 158/78
[2021-05-30 18:31] LABS: URINE BILIRUBIN - DIPSTICK NEGATIVE (NEGATIVE); URINE BLOOD DIPSTICK NEGATIVE (NEGATIVE); URINE COLOR YELLOW; URINE GLUCOSE - DIPSTICK NEGATIVE (NEGATIVE); URINE KETONE NEGATIVE (NEGATIVE); URINE LEUK ESTERASE NEGATIVE (NEGATIVE); URINE PROTEIN - DIPSTICK 100 mg/dL (NEG-TRACE); URINE SPECIFIC GRAVITY 1.025; URINE UROBILINOGEN - DIPSTICK 0.2 E.U./dL (0.2)
[2021-05-30 18:33] LABS: URINE NITRITE - DIPSTICK NEGATIVE (Negative)
[2021-05-30 18:34] LABS: URINE RBC 0-2 RBC/hpf (0-5); URINE SQUAMOUS EPITHELIAL CELL FEW EPI/hpf (0-FEW); URINE WBC 0-2 WBC/hpf (0-5)
[2021-05-30 19:00] VITALS: BP 164/74
[2021-05-31 03:35] VITALS: BP 132/75
[2021-05-31 07:58] VITALS: BP 160/72
[2021-05-31 10:56] VITALS: BP 190/89
[2021-05-31 12:13] VITALS: BP 153/79
== END 2021-05-31 14:12 ==
LOC: ED 08:41 → ED-I 10:15 → ED 10:30 → ED-I 10:31 → MS2 13:40
PROVIDERS: Family Medicine; ADMIT Internal Medicine; ATTEND Internal Medicine
DX: R55 Syncope and collapse (principal); I13.0 Hypertensive heart and chronic kidney disease with heart failure and stage 1 through stage 4 chronic kidney disease, or unspecified chronic kidney disease; N18.9 Chronic kidney disease, unspecified; I50.9 Heart failure, unspecified; F03.91 Unspecified dementia, unspecified severity, with behavioral disturbance; I48.0 Paroxysmal atrial fibrillation; E78.5 Hyperlipidemia, unspecified; J44.9 Chronic obstructive pulmonary disease, unspecified; I27.20 Pulmonary hypertension, unspecified; M10.9 Gout, unspecified; F32.9 Major depressive disorder, single episode, unspecified; F41.9 Anxiety disorder, unspecified; Z90.5 Acquired absence of kidney; Z87.891 Personal history of nicotine dependence; Z79.01 Long term (current) use of anticoagulants; Z91.041 Radiographic dye allergy status; Z20.822 Contact with and (suspected) exposure to COVID-19
CPT/HCPCS: G0378

== ENCOUNTER 2021-07-18 20:20 | Observation (INO) | payer MEDICARE, OTHER ==
[~2021-07-18] VITALS: Ht 162.6 cm; Wt 45.0 kg
--- NOTE | 2021-07-18 20:20 | NUR ---
A/CONFUSED BY HX F WITH REPORTED CP[ JPTA ALF PT WITH HX OF DEMENTIA PT IS UNRELIABLE HISTORIAN W/P/D SKIN PT DENIES PAIN CLEAR BILAT BREATH SOUNDS.SR NO ECTOPY NO ST T CHANGES
[2021-07-18 20:58] LABS: HEMATOCRIT 35.7 % (37.0-47.0); HEMOGLOBIN 11.1 g/dl (12.0-16.0); IMMATURE GRANULOCYTES 0.1 % (0.0-5.0); MEAN CELL VOLUME 100.3 fL CALC (80.0-100.0); MEAN CORPUSCULAR HGB 31.2 pG CALC (26.0-32.0); MEAN CORPUSCULAR HGB CONC 31.1 g/dL CAL (32.0-36.0); NEUT# 3.88 thou/uL (2.00-7.15); RED BLOOD COUNT 3.56 mill/uL (4.20-5.60); RED CELL DISTRI WIDTH 14.9 % (11.5-15.5)
[2021-07-18 20:59] LABS: URINE BILIRUBIN - DIPSTICK NEGATIVE (NEGATIVE); URINE BLOOD DIPSTICK NEGATIVE (NEGATIVE); URINE COLOR YELLOW; URINE GLUCOSE - DIPSTICK NEGATIVE (NEGATIVE); URINE KETONE TRACE mg/dL (NEGATIVE); URINE LEUK ESTERASE TRACE (NEGATIVE); URINE PH 5.5 (4.5-8.0); URINE PROTEIN - DIPSTICK 100 mg/dL (NEG-TRACE); URINE SPECIFIC GRAVITY >=1.030; URINE UROBILINOGEN - DIPSTICK 0.2 E.U./dL (0.2)
[2021-07-18 21:02] LABS: URINE NITRITE - DIPSTICK NEGATIVE (Negative)
[2021-07-18 21:03] LABS: URINE SQUAMOUS EPITHELIAL CELL FEW EPI/hpf (0-FEW)
[2021-07-18 21:17] LABS: ACT PARTIAL THROMBO TIME 23.7 SECONDS (20.0-32.5); PROTHROMBIN TIME 10.4 SECONDS (9.0-12.5)
[2021-07-18 21:19] LABS: ALBUMIN 3.7 g/dL (3.2-5.0); ALKALINE PHOSPHATASE 98 u/l (38-126); AMYLASE 194 u/l (30-110); ANION GAP 10 (6-22 (CALC)); BILIRUBIN, TOTAL 0.3 mg/dL (0.0-1.4); BUN 43 mg/dL (8-23); BUN/CREATININE RATIO 23 (12-20 (CALC)); CARBON DIOXIDE 24 mmol/l (22-30); CHLORIDE 107 mmol/l (95-108); CREATININE 1.9 mg/dL (0.5-1.0); GFR 25 ML/MIN (>=60 (CALC)); GFR FOR AFR.AMER. 31 ML/MIN (>=60 (CALC)); LIPASE 374 u/l (23-300); SGOT/AST 29 u/l (9-36); SODIUM 137 mmol/l (137-146); TOTAL PROTEIN 6.3 g/dL (6.3-8.2)
[2021-07-18 21:23] LABS: POTASSIUM 3.9 mmol/l (3.5-5.1)
--- NOTE | 2021-07-18 21:27 | NUR ---
PT RETURNS FROM CT ALERT W/P/D SKIN IN NO DISCOMFORT NSR NO ST T CHANGES
--- NOTE | 2021-07-18 22:50 | NUR ---
SR NO ST T CHANGESNO C/O PAIN OF ANY SOURSE.
--- NOTE | 2021-07-18 23:05 | NUR ---
PHONE REPORT TO NURSE LORI
--- NOTE | 2021-07-18 23:09 | NUR ---
TO [facility] RM 271 VIA STRETCHER IN STABLE CONDITION
--- NOTE | 2021-07-18 23:15 | NUR ---
PATIENT ADMITTED TO [facility] TO ROOM 271 VIA WC. ALERT, PLEASANTLY CONFUSED. UNABLE TO ANSWER QUESTIONS APPROPRIATELY. PATIENT WAS ALSO UNSURE OF HER BIRTHDAY. PATIENT ORIENTED TO ROOM, TV, AND CALL LIGHT. FRESH WATER AT BEDSIDE. PATIENT DENIES ANY PAIN OR CHEST PAIN AT THIS TIME. BED IN LOWEST POSITION WITH WHEELS LOCKED. BED ALARM IS ON FOR PATIENT SAFETY. CALL LIGHT AND BELONGINGS WITHIN REACH.
[2021-07-19 00:25] VITALS: BP 169/77
--- NOTE | 2021-07-19 03:41 | NUR ---
PATIENT RESTING IN BED QUIETLY ON HER RIGHT SIDE. NO SIGNS OF DISTRESS OR PAIN NOTED. CALL LIGHT REMAINS IN REACH. BED ALARM REMAINS ACTIVE FOR PATIENT SAFETY.
[2021-07-19 05:07] VITALS: BP 164/91
--- NOTE | 2021-07-19 05:15 | NUR ---
PATIENT KEEPS ATTEMPTING TO GET OUT OF BED TO WALK IN HALLWAY. BED ALARM SOUNDS. REDIRECTED TO USE CALL FORTE WHEN ASSISTANCE NEEDED. BED REMAINS IN LOWEST POSITION WITH WHEELS LOCKED. CALL LIGHT WITHIN REACH.
[2021-07-19 05:47] LABS: MEAN CELL VOLUME 100.5 fL CALC (80.0-100.0); MEAN CORPUSCULAR HGB 31.8 pG CALC (26.0-32.0); MEAN CORPUSCULAR HGB CONC 31.6 g/dL CAL (32.0-36.0); RED BLOOD COUNT 4.31 mill/uL (4.20-5.60)
[2021-07-19 05:52] LABS: HEMATOCRIT 43.3 % (37.0-47.0); HEMOGLOBIN 13.7 g/dl (12.0-16.0)
[2021-07-19 06:04] LABS: CREATININE 1.7 mg/dL (0.5-1.0); POTASSIUM 4.6 mmol/l (3.5-5.1)
[2021-07-19 08:58] VITALS: BP 187/82
--- NOTE | 2021-07-19 09:00 | NUR ---
BEDSIDE REPORT RECEIVED. PT LYING IN BED WATCHING TV. NO COMPLAINTS AT THIS TIME.
--- NOTE | 2021-07-19 09:42 | NUR ---
Patient was screened today for possible PT intervention. Patient is scheduled to be discharged today and go back to the long term.
--- NOTE | 2021-07-19 10:33 | NUR ---
PT TO RADIOLOGY VIA
[2021-07-19] MEDS ORDERED: KEFLEX500 MG PO (12:06)
--- NOTE | 2021-07-19 12:40 | NUR ---
REPORT GIVEN TO VERONICA AT [facility]. SHE STATED EVALUATOR TIME WOULD BE ABOUT 1 PM. PT B/P STILL ELEVATED AFTER MORNING EPIC ANESTHESIA ANALYST, PRN MED GIVEN. WILL RECHECK BP PRIOR TO TX. AWARE.
--- NOTE | 2021-07-19 13:14 | NUR ---
Discharge instructions given. Patient verbalizes understanding of same. Discharged in stable condition via Wheelchair to [facility] with STAFF. All belongings sent with pt.
== END 2021-07-19 12:59 ==
LOC: ED 20:20 → ED-I 21:35 → ED 21:50 → MS2 21:51
PROVIDERS: ADMIT Hospitalist; ATTEND Hospitalist
DX: R07.9 Chest pain, unspecified (principal); N39.0 Urinary tract infection, site not specified; E86.0 Dehydration; I13.0 Hypertensive heart and chronic kidney disease with heart failure and stage 1 through stage 4 chronic kidney disease, or unspecified chronic kidney disease; N18.30 Chronic kidney disease, stage 3 unspecified; I50.9 Heart failure, unspecified; F03.90 Unspecified dementia, unspecified severity, without behavioral disturbance, psychotic disturbance, mood disturbance, and anxiety; J44.9 Chronic obstructive pulmonary disease, unspecified; E78.5 Hyperlipidemia, unspecified; F41.9 Anxiety disorder, unspecified; F32.9 Major depressive disorder, single episode, unspecified; M10.9 Gout, unspecified; I48.0 Paroxysmal atrial fibrillation; Z87.891 Personal history of nicotine dependence; Z20.822 Contact with and (suspected) exposure to COVID-19
CPT/HCPCS: G0378

== ENCOUNTER 2021-10-03 01:00 | Observation (INO) | payer MEDICARE, OTHER ==
[~2021-10-03] VITALS: Ht 162.6 cm; Wt 35.8 kg
[~2021-10-03 01:00] MED LIST changes: +KEFLEX500 MG PO
[2021-10-03] MEDS ORDERED: ALLOPURINOL100 MG PO (01:18)
[2021-10-03 01:57] LABS: URINE BILIRUBIN - DIPSTICK NEGATIVE (NEGATIVE); URINE BLOOD DIPSTICK NEGATIVE (NEGATIVE); URINE COLOR YELLOW; URINE GLUCOSE - DIPSTICK NEGATIVE (NEGATIVE); URINE KETONE NEGATIVE (NEGATIVE); URINE LEUK ESTERASE NEGATIVE (NEGATIVE); URINE PROTEIN - DIPSTICK 30 mg/dL (NEG-TRACE); URINE SPECIFIC GRAVITY 1.015; URINE UROBILINOGEN - DIPSTICK 0.2 E.U./dL (0.2)
[2021-10-03 02:01] LABS: HEMATOCRIT 43.1 % (37.0-47.0); HEMOGLOBIN 13.5 g/dl (12.0-16.0); IMMATURE GRANULOCYTES 0.2 % (0.0-5.0); MEAN CELL VOLUME 102.6 fL CALC (80.0-100.0); MEAN CORPUSCULAR HGB 32.1 pG CALC (26.0-32.0); MEAN CORPUSCULAR HGB CONC 31.3 g/dL CAL (32.0-36.0); NEUT# 5.9 thou/uL (2.00-7.15); RED BLOOD COUNT 4.2 mill/uL (4.20-5.60); RED CELL DISTRI WIDTH 14.5 % (11.5-15.5)
[2021-10-03 02:14] LABS: URINE NITRITE - DIPSTICK NEGATIVE (Negative)
[2021-10-03 02:18] LABS: ALBUMIN 4.2 g/dL (3.2-5.0); ALKALINE PHOSPHATASE 140 u/l (38-126); BUN 45 mg/dL (8-23); BUN/CREATININE RATIO 20 (12-20 (CALC)); CHLORIDE 105 mmol/l (95-108); CREATININE 2.2 mg/dL (0.5-1.0); GFR 21 ML/MIN (>=60 (CALC)); GFR FOR AFR.AMER. 26 ML/MIN (>=60 (CALC)); LIPASE 352 u/l (23-300); POTASSIUM 5.1 mmol/l (3.5-5.1); SGOT/AST 35 u/l (9-36); SODIUM 139 mmol/l (137-146); TOTAL PROTEIN 7.4 g/dL (6.3-8.2)
[2021-10-03 02:19] LABS: ACT PARTIAL THROMBO TIME 23.4 SECONDS (20.0-32.5); URINE BACTERIA FEW hpf; URINE EPITHELIAL CELLS FEW EPI/hpf (0-FEW); URINE WBC 0-2 WBC/hpf (0-5)
[2021-10-03 02:24] LABS: ANION GAP 12 (6-22 (CALC)); BILIRUBIN, TOTAL 0.6 mg/dL (0.0-1.4); CARBON DIOXIDE 27 mmol/l (22-30)
[2021-10-03] MEDS ORDERED: DICLOFENAC SODI75 MG TOP (03:47)
[2021-10-03] MEDS ORDERED: VOLTAREN1%GEL TOP (07:14)
[2021-10-03 08:00] VITALS: BP 136/60
[2021-10-03 16:20] VITALS: BP 146/78
[2021-10-03 19:00] VITALS: BP 184/86
[2021-10-04 04:16] VITALS: BP 161/74
[2021-10-04 05:50] LABS: CREATININE 1.7 mg/dL (0.5-1.0); MAGNESIUM 2.1 mg/dL (1.6-2.3)
[2021-10-04 05:51] LABS: HEMATOCRIT 39.5 % (37.0-47.0); MEAN CORPUSCULAR HGB 32.9 pG CALC (26.0-32.0); MEAN CORPUSCULAR HGB CONC 32.9 g/dL CAL (32.0-36.0); RED BLOOD COUNT 3.95 mill/uL (4.20-5.60); RED CELL DISTRI WIDTH 14.3 % (11.5-15.5)
[2021-10-04 06:00] LABS: POTASSIUM 5.2 mmol/l (3.5-5.1)
[2021-10-04 08:00] VITALS: BP 206/88
[2021-10-04 11:47] VITALS: BP 187/86
[2021-10-04] MEDS ORDERED: PREDNISONE20 MG PO (13:18)
[2021-10-04] MEDS ORDERED: ZITHROMAX250 MG PO (13:18)
== END 2021-10-04 14:25 ==
LOC: ED 01:00 → ED-I 02:17 → ED 02:39 → ED-I 02:40 → MS2 12:06
PROVIDERS: Nurse Practitioner; ADMIT Internal Medicine; ATTEND Internal Medicine
DX: J44.1 Chronic obstructive pulmonary disease with (acute) exacerbation (principal); R09.02 Hypoxemia; I13.0 Hypertensive heart and chronic kidney disease with heart failure and stage 1 through stage 4 chronic kidney disease, or unspecified chronic kidney disease; N18.30 Chronic kidney disease, stage 3 unspecified; I50.9 Heart failure, unspecified; I48.0 Paroxysmal atrial fibrillation; F03.90 Unspecified dementia, unspecified severity, without behavioral disturbance, psychotic disturbance, mood disturbance, and anxiety; E78.5 Hyperlipidemia, unspecified; F41.9 Anxiety disorder, unspecified; F32.A Depression, unspecified; R63.6 Underweight; Z68.1 Body mass index [BMI] 19.9 or less, adult; M10.9 Gout, unspecified; Z87.891 Personal history of nicotine dependence; Z20.822 Contact with and (suspected) exposure to COVID-19
CPT/HCPCS: S0166

== ENCOUNTER 2021-11-12 07:11 | Emergency (ER) | payer MEDICARE, OTHER ==
[~2021-11-12] VITALS: Ht 162.6 cm; Wt 50.0 kg
[~2021-11-12 07:11] MED LIST changes: +DICLOFENAC SODI75 MG TOP; +PREDNISONE20 MG PO; +REMERON7.5 MG PO; +VOLTAREN1%GEL TOP
[2021-11-12 09:03] LABS: HEMOGLOBIN 14.4 g/dl (12.0-16.0); IMMATURE GRANULOCYTES 0.2 % (0.0-5.0); NEUT# 3.29 thou/uL (2.00-7.15); RED BLOOD COUNT 4.37 mill/uL (4.20-5.60); RED CELL DISTRI WIDTH 14.2 % (11.5-15.5)
[2021-11-12 09:04] LABS: HEMATOCRIT 46.5 % (37.0-47.0)
[2021-11-12 09:05] LABS: MEAN CELL VOLUME 106.4 fL CALC (80.0-100.0)
[2021-11-12 09:21] LABS: ALBUMIN 3.8 g/dL (3.2-5.0); ALKALINE PHOSPHATASE 120 u/l (38-126); ANION GAP 10 (6-22 (CALC)); BILIRUBIN, TOTAL 0.5 mg/dL (0.0-1.4); BUN 38 mg/dL (8-23); BUN/CREATININE RATIO 20 (12-20 (CALC)); CARBON DIOXIDE 25 mmol/l (22-30); CHLORIDE 112 mmol/l (95-108); CREATININE 1.9 mg/dL (0.5-1.0); GFR 25 ML/MIN (>=60 (CALC)); GFR FOR AFR.AMER. 31 ML/MIN (>=60 (CALC)); SGOT/AST 36 u/l (9-36); SODIUM 142 mmol/l (137-146); TOTAL PROTEIN 6.9 g/dL (6.3-8.2)
[2021-11-12 10:37] LABS: URINE BILIRUBIN - DIPSTICK NEGATIVE (NEGATIVE); URINE BLOOD DIPSTICK NEGATIVE (NEGATIVE); URINE COLOR YELLOW; URINE GLUCOSE - DIPSTICK NEGATIVE (NEGATIVE); URINE KETONE NEGATIVE (NEGATIVE); URINE LEUK ESTERASE NEGATIVE (NEGATIVE); URINE NITRITE - DIPSTICK NEGATIVE (Negative); URINE PROTEIN - DIPSTICK 30 mg/dL (NEG-TRACE); URINE SPECIFIC GRAVITY 1.015; URINE UROBILINOGEN - DIPSTICK 0.2 E.U./dL (0.2)
[2021-11-12 10:48] LABS: URINE SQUAMOUS EPITHELIAL CELL FEW EPI/hpf (0-FEW)
[2021-11-12 13:40] VITALS: BP 173/75
== END 2021-11-12 13:40 | disposition home or self-care (01) ==
LOC: ED 07:11
PROVIDERS: Emergency Medicine
DX: R55 Syncope and collapse (principal); E86.0 Dehydration; N28.9 Disorder of kidney and ureter, unspecified; I11.0 Hypertensive heart disease with heart failure; I50.9 Heart failure, unspecified; F03.90 Unspecified dementia, unspecified severity, without behavioral disturbance, psychotic disturbance, mood disturbance, and anxiety; E78.5 Hyperlipidemia, unspecified; J44.9 Chronic obstructive pulmonary disease, unspecified; F41.9 Anxiety disorder, unspecified; F32.A Depression, unspecified; R63.6 Underweight

== ENCOUNTER 2022-02-28 06:56 | Observation (INO) | payer MEDICARE, OTHER ==
[~2022-02-28] VITALS: Ht 157.5 cm; Wt 53.0 kg
[2022-02-28] VITALS (12 sets, daily range): BP systolic 134–180; BP diastolic 62–87
[2022-02-28 07:31] LABS: IMMATURE GRANULOCYTES 0.3 % (0.0-5.0); MEAN CELL VOLUME 103.2 fL CALC (80.0-100.0); MEAN CORPUSCULAR HGB 33.1 pG CALC (26.0-32.0); NEUT# 4.2 thou/uL (2.00-7.15); RED BLOOD COUNT 3.75 mill/uL (4.20-5.60); RED CELL DISTRI WIDTH 13.2 % (11.5-15.5)
[2022-02-28 07:42] LABS: HEMATOCRIT 38.7 % (37.0-47.0); HEMOGLOBIN 12.4 g/dl (12.0-16.0)
[2022-02-28 07:52] LABS: ALBUMIN 3.6 g/dL (3.2-5.0); ALKALINE PHOSPHATASE 132 u/l (38-126); ANION GAP 11 (6-22 (CALC)); BUN 33 mg/dL (8-23); BUN/CREATININE RATIO 21 (12-20 (CALC)); CARBON DIOXIDE 24 mmol/l (22-30); CHLORIDE 113 mmol/l (95-108); CREATININE 1.6 mg/dL (0.5-1.0); GFR 31 ML/MIN (>=60 (CALC)); GFR FOR AFR.AMER. 38 ML/MIN (>=60 (CALC)); POTASSIUM 5.1 mmol/l (3.5-5.1); SGOT/AST 27 u/l (9-36); SODIUM 143 mmol/l (137-146); TOTAL PROTEIN 6.3 g/dL (6.3-8.2)
[2022-02-28 07:54] LABS: BILIRUBIN, TOTAL 0.2 mg/dL (0.0-1.4)
[2022-02-28] MEDS ORDERED: SINGULAIR10 MG PO (09:02)
[2022-03-01 00:14] VITALS: BP 183/80
[2022-03-01 04:27] VITALS: BP 162/74
[2022-03-01 05:40] LABS: HEMATOCRIT 40.1 % (37.0-47.0); HEMOGLOBIN 12.8 g/dl (12.0-16.0); MEAN CELL VOLUME 103.6 fL CALC (80.0-100.0); MEAN CORPUSCULAR HGB 33.1 pG CALC (26.0-32.0); MEAN CORPUSCULAR HGB CONC 31.9 g/dL CAL (32.0-36.0); RED BLOOD COUNT 3.87 mill/uL (4.20-5.60); RED CELL DISTRI WIDTH 13.4 % (11.5-15.5)
[2022-03-01 06:04] LABS: CREATININE 1.8 mg/dL (0.5-1.0)
[2022-03-01 08:48] VITALS: BP 162/74
== END 2022-03-01 13:49 ==
LOC: ED 06:56 → ED-I 08:00 → ED 08:55 → MS2 08:56
PROVIDERS: Family Medicine; ADMIT Hospitalist; ATTEND Hospitalist
DX: R07.9 Chest pain, unspecified (principal); J20.9 Acute bronchitis, unspecified; J44.0 Chronic obstructive pulmonary disease with (acute) lower respiratory infection; I13.0 Hypertensive heart and chronic kidney disease with heart failure and stage 1 through stage 4 chronic kidney disease, or unspecified chronic kidney disease; I50.9 Heart failure, unspecified; N18.30 Chronic kidney disease, stage 3 unspecified; F41.9 Anxiety disorder, unspecified; F03.90 Unspecified dementia, unspecified severity, without behavioral disturbance, psychotic disturbance, mood disturbance, and anxiety; E78.5 Hyperlipidemia, unspecified; R63.6 Underweight; I48.0 Paroxysmal atrial fibrillation; F32.A Depression, unspecified; Z68.21 Body mass index [BMI] 21.0-21.9, adult; Z87.891 Personal history of nicotine dependence; Z20.822 Contact with and (suspected) exposure to COVID-19

== ENCOUNTER 2022-05-03 18:44 | Emergency (ER) | payer MEDICARE, OTHER ==
[2022-05-03] VITALS (10 sets, daily range): BP systolic 182–208; BP diastolic 84–120
[~2022-05-03] VITALS: Ht 157.5 cm; Wt 52.0 kg
[~2022-05-03 18:44] MED LIST changes: +SINGULAIR10 MG PO
[2022-05-03 19:17] LABS: HEMATOCRIT 37.1 % (37.0-47.0); HEMOGLOBIN 12.2 g/dl (12.0-16.0); IMMATURE GRANULOCYTES 0.6 % (0.0-5.0); MEAN CELL VOLUME 100.5 fL CALC (80.0-100.0); MEAN CORPUSCULAR HGB 33.1 pG CALC (26.0-32.0); MEAN CORPUSCULAR HGB CONC 32.9 g/dL CAL (32.0-36.0); NEUT# 4.37 thou/uL (2.00-7.15); RED BLOOD COUNT 3.69 mill/uL (4.20-5.60); RED CELL DISTRI WIDTH 13.4 % (11.5-15.5)
[2022-05-03 19:31] LABS: CREATININE 1.9 mg/dL (0.5-1.0); TOTAL PROTEIN 6.7 g/dL (6.3-8.2)
[2022-05-03 19:32] LABS: BILIRUBIN, TOTAL 0.6 mg/dL (0.0-1.4); POTASSIUM 5.3 mmol/l (3.5-5.1)
[2022-05-03 21:32] LABS: URINE BILIRUBIN - DIPSTICK NEGATIVE (NEGATIVE); URINE BLOOD DIPSTICK TRACE-INTACT (NEGATIVE); URINE COLOR YELLOW; URINE GLUCOSE - DIPSTICK NEGATIVE (NEGATIVE); URINE KETONE NEGATIVE (NEGATIVE); URINE LEUK ESTERASE NEGATIVE (NEGATIVE); URINE PH 6.5 (4.5-8.0); URINE PROTEIN - DIPSTICK 30 mg/dL (NEG-TRACE); URINE UROBILINOGEN - DIPSTICK 0.2 E.U./dL (0.2)
[2022-05-03 21:33] LABS: URINE NITRITE - DIPSTICK NEGATIVE (Negative)
[2022-05-03 21:39] LABS: URINE RBC 0-2 RBC/hpf (0-5)
== END 2022-05-04 00:06 | disposition home or self-care (01) ==
LOC: ED 18:44
PROVIDERS: Family Medicine
DX: S00.11XA Contusion of right eyelid and periocular area, initial encounter (principal); S60.511A Abrasion of right hand, initial encounter; I11.0 Hypertensive heart disease with heart failure; I50.9 Heart failure, unspecified; E78.5 Hyperlipidemia, unspecified; F41.9 Anxiety disorder, unspecified; F03.90 Unspecified dementia, unspecified severity, without behavioral disturbance, psychotic disturbance, mood disturbance, and anxiety; J44.9 Chronic obstructive pulmonary disease, unspecified; F32.A Depression, unspecified; R63.6 Underweight; Y04.0XXA Assault by unarmed brawl or fight, initial encounter; Y92.099 Unspecified place in other non-institutional residence as the place of occurrence of the external cause

== ENCOUNTER 2022-05-25 01:42 | Observation (INO) | payer MEDICARE, OTHER ==
[2022-05-25] VITALS (10 sets, daily range): BP systolic 123–153; BP diastolic 46–76
[~2022-05-25] VITALS: Ht 157.5 cm; Wt 53.2 kg
[~2022-05-25 01:42] MED LIST changes: -NORVASC5 M1 PO
--- NOTE | 2022-05-25 02:00 | NUR ---
PT OOB TO BEDSIDE COMMODE. PT SOB WITH EXERTION. O2 SAT DECREASED TO 84% ON ROOM AIR. O2 PLACED AT 2L VIA NC
[2022-05-25 02:22] LABS: HEMATOCRIT 33.8 % (37.0-47.0); IMMATURE GRANULOCYTES 0.9 % (0.0-5.0); MEAN CELL VOLUME 100.6 fL CALC (80.0-100.0); MEAN CORPUSCULAR HGB 32.7 pG CALC (26.0-32.0); MEAN CORPUSCULAR HGB CONC 32.5 g/dL CAL (32.0-36.0); NEUT# 4.9 thou/uL (2.00-7.15); RED BLOOD COUNT 3.36 mill/uL (4.20-5.60); RED CELL DISTRI WIDTH 13.6 % (11.5-15.5)
[2022-05-25 02:34] LABS: ALBUMIN 3.5 g/dL (3.2-5.0); ALKALINE PHOSPHATASE 112 u/l (38-126); AMYLASE 112 u/l (30-110); BUN 28 mg/dL (8-23); BUN/CREATININE RATIO 14 (12-20 (CALC)); CHLORIDE 108 mmol/l (95-108); CREATININE 1.9 mg/dL (0.5-1.0); GFR FOR AFR.AMER. 31 ML/MIN (>=60 (CALC)); GFR OTHER RACES 25 ML/MIN (>=60 (CALC)); LIPASE 237 u/l (23-300); POTASSIUM 4.8 mmol/l (3.5-5.1); SGOT/AST 24 u/l (9-36); SODIUM 140 mmol/l (137-146); TOTAL PROTEIN 6.1 g/dL (6.3-8.2)
[2022-05-25 02:36] LABS: ANION GAP 11 (6-22 (CALC)); BILIRUBIN, TOTAL 0.3 mg/dL (0.0-1.4); CARBON DIOXIDE 26 mmol/l (22-30)
[2022-05-25 02:46] LABS: MYOGLOBIN 86 ng/mL (0 - 62)
--- NOTE | 2022-05-25 03:12 | NUR ---
PT PLACED TO ROOM AIR. PLAN FOR BLOOD GAS IN 5 MIN.
[2022-05-25] MEDS ORDERED: FUROSEMIDE20 MG PO (05:37)
[2022-05-25] MEDS ORDERED: HYDRALAZINE HYD25 MG PO (05:38)
[2022-05-25] MEDS ORDERED: POLYETHYLE17 GM/SCOO PO (05:41)
[2022-05-25] MEDS ORDERED: SENNA-TABS8.6 MG PO (05:43)
[2022-05-25] MEDS ORDERED: SEROQUEL25 MG PO (05:43)
--- NOTE | 2022-05-25 06:00 | NUR ---
CALL TO [facility] TO UPDATE STAFF THAT PT IS BEING ADMITTED.
--- NOTE | 2022-05-25 06:04 | NUR ---
PT VERBALIZED UNDERSTANDING OF PLAN FOR ADMISSION
--- NOTE | 2022-05-25 06:18 | NUR ---
Admission Note Report Given to: LILY HWANG Transported by: X Wheelchair Stretcher Transported with: X Nurse Transporter X Patent IV X O2 X Fruit Harvester Machine Operator Location: ICU X MS2 PATIENT TO FLOOR AT 0609. BEDSIDE REPORT GIVEN.
--- NOTE | 2022-05-25 08:00 | NUR ---
GOT REPORT FROM DIRECTOR PHARMACOVIGILANCE NURSE. PATIENT ASSESSED. ALERT AND ORIENTATED. MEDICATIONS GIVEN. PATIENT HAS CALL LIGHT AND BED SIDE TABLE WITH IN REACH. NO QUESTIONS OR CONCERNS AT THIS TIME. ADVISED PATIENT TO CALL IF NEEDING ANYTHING.
--- NOTE | 2022-05-25 12:00 | NUR ---
PATIENT IS RESTING IN BED NO SXS OF DISTRESS. CALL LIGHT WITH IN REACH. ADVISED TO CALL IF NEEDING ANYTHING. PATIENT VERBALIZED UNDERSTANDING.
[2022-05-25] MEDS ORDERED: PREDNISONE20 MG PO (12:04)
[2022-05-25] MEDS ORDERED: DULERA1 AE1 IN (12:04)
--- NOTE | 2022-05-25 13:45 | NUR ---
Discharge instructions given. Patient verbalizes understanding of same. Discharged in stable condition via Wheelchair to Home with family. All belongings sent with pt.
[2022-05-27] MEDS ORDERED: TYLENOL325 M2 PO (14:11)
[2022-05-27] MEDS ORDERED: CORRECTOL100 MG PO (14:12)
[2022-05-27] MEDS ORDERED: [UNRECOGNIZED DRUG - REMARK] PO (14:13)
[2022-05-27] MEDS ORDERED: CONSTULOSE10 GM/15 M PO (14:14)
[2022-05-30] MEDS ORDERED: LASIX 20 MG TAB20 MG PO (11:20)
[2022-05-30] MEDS ORDERED: MEDDOSEPAK PO (11:20)
[2022-05-30] MEDS ORDERED: ZITHROMAX250 MG PO (11:20)
== END 2022-05-25 13:45 ==
LOC: ED 01:42 → ED-I 04:50 → ED 05:14 → MS2 05:15
PROVIDERS: Emergency Medicine; ADMIT Internal Medicine; ATTEND Internal Medicine
DX: R07.9 Chest pain, unspecified (principal); J44.1 Chronic obstructive pulmonary disease with (acute) exacerbation; I11.0 Hypertensive heart disease with heart failure; I50.9 Heart failure, unspecified; I48.0 Paroxysmal atrial fibrillation; E78.5 Hyperlipidemia, unspecified; F41.9 Anxiety disorder, unspecified; F03.90 Unspecified dementia, unspecified severity, without behavioral disturbance, psychotic disturbance, mood disturbance, and anxiety; F32.A Depression, unspecified; Z87.891 Personal history of nicotine dependence; Z20.822 Contact with and (suspected) exposure to COVID-19

== ENCOUNTER 2023-02-09 12:57 | Observation (INO) | payer MEDICARE, OTHER ==
[2023-02-09] VITALS (23 sets, daily range): BP systolic 82–187; BP diastolic 59–91
[~2023-02-09] VITALS: Ht 157.5 cm; Wt 46.4 kg
[~2023-02-09 12:57] MED LIST changes: +CORRECTOL100 MG PO; +DULERA1 AE1 IN; +HYDRALAZINE HYD25 MG PO; +POLYETHYLE17 GM/SCOO PO; +SEROQUEL25 MG PO; +TYLENOL325 M2 PO; +[UNRECOGNIZED DRUG - REMARK] PO
[2023-02-09 13:49] LABS: URINE BILIRUBIN - DIPSTICK NEGATIVE (NEGATIVE); URINE BLOOD DIPSTICK NEGATIVE (NEGATIVE); URINE COLOR YELLOW; URINE GLUCOSE - DIPSTICK NEGATIVE (NEGATIVE); URINE KETONE NEGATIVE (NEGATIVE); URINE LEUK ESTERASE NEGATIVE (NEGATIVE); URINE PROTEIN - DIPSTICK TRACE mg/dL (NEG-TRACE); URINE UROBILINOGEN - DIPSTICK 0.2 E.U./dL (0.2)
[2023-02-09 13:49] LABS: BASO% 0.6 % (0-3); EOS% 6.1 % (0-8); HEMOGLOBIN 11.4 g/dl (12.0-16.0); IMMATURE GRANULOCYTES 0.3 % (0.0-5.0); LYMPH% 22.2 % (15-41); MEAN CORPUSCULAR HGB 30.6 pG CALC (26.0-32.0); MEAN CORPUSCULAR HGB CONC 30.8 g/dL CAL (32.0-36.0); MONO% 14.4 % (2-13); NEUT# 2.03 thou/uL (2.00-7.15); NEUT% 56.4 % (42-76); RED BLOOD COUNT 3.73 mill/uL (4.20-5.60); RED CELL DISTRI WIDTH 14.1 % (11.5-15.5)
[2023-02-09 13:51] LABS: URINE NITRITE - DIPSTICK NEGATIVE (Negative)
[2023-02-09 13:51] LABS: MEAN CELL VOLUME 99.2 fL CALC (80.0-100.0)
[2023-02-09 14:08] LABS: BILIRUBIN, TOTAL 0.2 mg/dL (0.02-1.3); CREATININE 2.2 mg/dL (0.5-1.0); POTASSIUM 4.9 mmol/l (3.5-5.1)
[2023-02-09 14:09] LABS: ALBUMIN 3.9 g/dL (3.2-5.0)
[2023-02-09] MEDS ORDERED: HYDRALAZINE50 MG PO (14:52)
[2023-02-09] MEDS ORDERED: ATORVASTATIN CA40 MG PO (14:54)
[2023-02-09] MEDS ORDERED: MONTELUKAST SOD10 MG PO (14:54)
[2023-02-09] MEDS ORDERED: ASPIRIN81 MG PO (14:54)
[2023-02-09] MEDS ORDERED: NIFEDIPINE10 M1 PO (14:55)
[2023-02-09] MEDS ORDERED: SEROQUEL25 MG PO (14:56)
[2023-02-10 00:43] VITALS: BP 154/74
[2023-02-10 05:21] VITALS: BP 166/77
[2023-02-10 08:08] VITALS: BP 187/86
[2023-02-10 18:43] VITALS: BP 139/77
== END 2023-02-10 19:47 ==
LOC: ED 12:57 → MS2 22:07
PROVIDERS: Family Medicine; ADMIT Internal Medicine; ATTEND Internal Medicine
PROC: 0T9B70Z Drainage of Bladder with Drainage Device, Via Natural or Artificial Opening (ICD-10-PCS; principal; 2023-02-09)
DX: R33.9 Retention of urine, unspecified (principal); I13.0 Hypertensive heart and chronic kidney disease with heart failure and stage 1 through stage 4 chronic kidney disease, or unspecified chronic kidney disease; I50.32 Chronic diastolic (congestive) heart failure; N18.30 Chronic kidney disease, stage 3 unspecified; F03.B0 Unspecified dementia, moderate, without behavioral disturbance, psychotic disturbance, mood disturbance, and anxiety; I48.0 Paroxysmal atrial fibrillation; J44.9 Chronic obstructive pulmonary disease, unspecified; E78.5 Hyperlipidemia, unspecified; F41.9 Anxiety disorder, unspecified; F32.A Depression, unspecified; Z87.891 Personal history of nicotine dependence
CPT/HCPCS: J1650

== ENCOUNTER 2023-02-12 12:26 | Observation (INO) | payer MEDICARE, OTHER ==
[~2023-02-12] VITALS: Ht 157.5 cm; Wt 47.0 kg
[2023-02-12] VITALS (45 sets, daily range): BP systolic 84–155; BP diastolic 46–120
[~2023-02-12 12:26] MED LIST changes: +ASPIRIN81 MG PO; +ATORVASTATIN CA40 MG PO; +MONTELUKAST SOD10 MG PO; +NIFEDIPINE10 M1 PO
[2023-02-12 12:57] LABS: BASO% 0.6 % (0-3); EOS% 4.4 % (0-8); HEMATOCRIT 37.9 % (37.0-47.0); HEMOGLOBIN 11.7 g/dl (12.0-16.0); IMMATURE GRANULOCYTES 0.2 % (0.0-5.0); LYMPH% 19.3 % (15-41); MEAN CELL VOLUME 97.7 fL CALC (80.0-100.0); MEAN CORPUSCULAR HGB 30.2 pG CALC (26.0-32.0); MEAN CORPUSCULAR HGB CONC 30.9 g/dL CAL (32.0-36.0); MONO% 12.5 % (2-13); NEUT# 3.29 thou/uL (2.00-7.15); RED BLOOD COUNT 3.88 mill/uL (4.20-5.60); RED CELL DISTRI WIDTH 13.4 % (11.5-15.5)
[2023-02-12 13:20] LABS: PROTHROMBIN TIME 10.4 SECONDS (9.0-12.5)
[2023-02-12 13:21] LABS: ALBUMIN 3.8 g/dL (3.2-5.0); ALKALINE PHOSPHATASE 105 u/l (38-126); ANION GAP 14 (6-22 (CALC)); BUN 42 mg/dL (8-23); BUN/CREATININE RATIO 19 (12-20 (CALC)); CARBON DIOXIDE 22 mmol/l (22-30); CHLORIDE 102 mmol/l (95-108); CREATININE 2.3 mg/dL (0.5-1.0); GFR FOR AFR.AMER. 25 ML/MIN (>=60 (CALC)); GFR OTHER RACES 20 ML/MIN (>=60 (CALC)); POTASSIUM 4.4 mmol/l (3.5-5.1); SGOT/AST 57 u/l (9-36); SODIUM 133 mmol/l (137-146); TOTAL PROTEIN 6.6 g/dL (6.3-8.2)
[2023-02-12 13:22] LABS: BILIRUBIN, TOTAL 0.3 mg/dL (0.02-1.3)
[2023-02-12 15:11] LABS: URINE BILIRUBIN - DIPSTICK NEGATIVE (NEGATIVE); URINE BLOOD DIPSTICK TRACE-INTACT (NEGATIVE); URINE COLOR YELLOW; URINE GLUCOSE - DIPSTICK NEGATIVE (NEGATIVE); URINE KETONE NEGATIVE (NEGATIVE); URINE PROTEIN - DIPSTICK NEGATIVE (NEG-TRACE); URINE SPECIFIC GRAVITY <=1.005; URINE UROBILINOGEN - DIPSTICK 0.2 E.U./dL (0.2)
[2023-02-12 15:13] LABS: URINE LEUK ESTERASE SMALL (NEGATIVE); URINE NITRITE - DIPSTICK NEGATIVE (Negative)
[2023-02-12 15:24] LABS: URINE RBC 0-2 RBC/hpf (0-5)
[2023-02-13] VITALS (33 sets, daily range): BP systolic 90–187; BP diastolic 47–108
[2023-02-13 02:44] LABS: HEMATOCRIT 33.7 % (37.0-47.0); HEMOGLOBIN 10.6 g/dl (12.0-16.0); MEAN CORPUSCULAR HGB 30.8 pG CALC (26.0-32.0); MEAN CORPUSCULAR HGB CONC 31.5 g/dL CAL (32.0-36.0); RED BLOOD COUNT 3.44 mill/uL (4.20-5.60); RED CELL DISTRI WIDTH 13.3 % (11.5-15.5)
[2023-02-13 03:13] LABS: ALBUMIN 3.4 g/dL (3.2-5.0); CREATININE 2.5 mg/dL (0.5-1.0); MAGNESIUM 1.9 mg/dL (1.6-2.3); POTASSIUM 4.9 mmol/l (3.5-5.1); TOTAL PROTEIN 5.9 g/dL (6.3-8.2)
[2023-02-14] VITALS (15 sets, daily range): BP systolic 91–162; BP diastolic 42–98
[2023-02-14 06:08] LABS: CREATININE 2.4 mg/dL (0.5-1.0); MAGNESIUM 1.9 mg/dL (1.6-2.3); POTASSIUM 4.8 mmol/l (3.5-5.1)
[2023-02-14] MEDS ORDERED: KEFLEX500 MG PO (11:03)
== END 2023-02-14 13:45 ==
LOC: ED 12:26 → ED-I 15:51 → ED 16:12 → ICU 16:13
PROVIDERS: Family Medicine; ADMIT Internal Medicine; ATTEND Internal Medicine
DX: G45.9 Transient cerebral ischemic attack, unspecified (principal); N39.0 Urinary tract infection, site not specified; B96.1 Klebsiella pneumoniae [K. pneumoniae] as the cause of diseases classified elsewhere; I13.0 Hypertensive heart and chronic kidney disease with heart failure and stage 1 through stage 4 chronic kidney disease, or unspecified chronic kidney disease; I50.9 Heart failure, unspecified; N18.30 Chronic kidney disease, stage 3 unspecified; J96.11 Chronic respiratory failure with hypoxia; J44.9 Chronic obstructive pulmonary disease, unspecified; I69.398 Other sequelae of cerebral infarction; G93.89 Other specified disorders of brain; I48.0 Paroxysmal atrial fibrillation; R33.9 Retention of urine, unspecified; E78.5 Hyperlipidemia, unspecified; F03.90 Unspecified dementia, unspecified severity, without behavioral disturbance, psychotic disturbance, mood disturbance, and anxiety; F41.9 Anxiety disorder, unspecified; F32.A Depression, unspecified; T41.5X6A Underdosing of therapeutic gases, initial encounter; Z91.128 Patient's intentional underdosing of medication regimen for other reason; Z87.891 Personal history of nicotine dependence; Z91.041 Radiographic dye allergy status; Z96.0 Presence of urogenital implants; Z20.822 Contact with and (suspected) exposure to COVID-19
CPT/HCPCS: Q9967

== ENCOUNTER 2023-02-16 08:16 | Inpatient (IN) | payer MEDICARE, OTHER ==
[~2023-02-16] VITALS: Ht 152.4 cm; Wt 47.2 kg
[2023-02-16] VITALS (13 sets, daily range): BP systolic 129–169; BP diastolic 52–74
--- NOTE | 2023-02-16 08:20 | NUR ---
PATIENT TO ROOM VIA EMS. SHE COMES FROM [facility] FOR A FEVER, GENERALIZED WEAKNESS AND LEFT HAND SWELLING. SHE HAS A [address]
[2023-02-16 08:41] LABS: BASO% 0.3 % (0-3); EOS% 0.9 % (0-8); HEMATOCRIT 36.8 % (37.0-47.0); HEMOGLOBIN 11.6 g/dl (12.0-16.0); IMMATURE GRANULOCYTES 0.3 % (0.0-5.0); LYMPH% 8.7 % (15-41); MEAN CELL VOLUME 97.1 fL CALC (80.0-100.0); MEAN CORPUSCULAR HGB 30.6 pG CALC (26.0-32.0); MEAN CORPUSCULAR HGB CONC 31.5 g/dL CAL (32.0-36.0); MONO% 8.1 % (2-13); NEUT# 8.52 thou/uL (2.00-7.15); NEUT% 81.7 % (42-76); RED BLOOD COUNT 3.79 mill/uL (4.20-5.60); RED CELL DISTRI WIDTH 13.5 % (11.5-15.5)
[2023-02-16 08:55] LABS: ALBUMIN 3.6 g/dL (3.2-5.0); ALKALINE PHOSPHATASE 88 u/l (38-126); ANION GAP 12 (6-22 (CALC)); BUN 42 mg/dL (8-23); BUN/CREATININE RATIO 21 (12-20 (CALC)); CARBON DIOXIDE 24 mmol/l (22-30); CHLORIDE 103 mmol/l (95-108); GFR FOR AFR.AMER. 29 ML/MIN (>=60 (CALC)); GFR OTHER RACES 24 ML/MIN (>=60 (CALC)); MAGNESIUM 1.9 mg/dL (1.6-2.3); POTASSIUM 5.1 mmol/l (3.5-5.1); SGOT/AST 35 u/l (9-36); SODIUM 135 mmol/l (137-146); TOTAL PROTEIN 6.7 g/dL (6.3-8.2)
[2023-02-16 08:56] LABS: BILIRUBIN, TOTAL 0.5 mg/dL (0.02-1.3)
--- NOTE | 2023-02-16 09:15 | NUR ---
PATIENT RESTING IN BED. NO ACUTE DISTRESS. IV ABX INFUSING.
[2023-02-16 09:18] LABS: URINE BILIRUBIN - DIPSTICK NEGATIVE (NEGATIVE); URINE BLOOD DIPSTICK TRACE-INTACT (NEGATIVE); URINE COLOR YELLOW; URINE GLUCOSE - DIPSTICK NEGATIVE (NEGATIVE); URINE KETONE NEGATIVE (NEGATIVE); URINE LEUK ESTERASE NEGATIVE (NEGATIVE); URINE PROTEIN - DIPSTICK 100 mg/dL (NEG-TRACE); URINE UROBILINOGEN - DIPSTICK 0.2 E.U./dL (0.2)
[2023-02-16 09:21] LABS: URINE EPITHELIAL CELLS FEW EPI/hpf (0-FEW); URINE MUCUS MODERATE hpf (NONE-FEW); URINE NITRITE - DIPSTICK NEGATIVE (Negative)
--- NOTE | 2023-02-16 10:30 | NUR ---
Reassessment of patient completed. No distress noted.RESTING IN BED. LIGHTS DIMMED FOR COMFORT
--- NOTE | 2023-02-16 11:05 | NUR ---
PATIENT REPOSITIONED IN BED. SHE IS RESTING IN BED. NO ACUTE DISTRESS
--- NOTE | 2023-02-16 12:05 | NUR ---
RESTING IN BED, LIGHTS DIMMED FOR COMFORT. NO ACUTE DISTRESS
--- NOTE | 2023-02-16 13:12 | NUR ---
Reassessment of patient completed. No distress noted. RESTING IN BED. LIGHTS DIMMED FOR COMFORT
--- NOTE | 2023-02-16 14:15 | NUR ---
REPORT CALLED TO JULIET ON [facility]. PATIENT TRANSFERRED TO [facility] VIA STRETCHER. ABLE TO AMBULATE TO BED WITH ASSIST X 1. 1450 ML OF URINE EMPTIED FROM PERDOMO
--- NOTE | 2023-02-16 19:40 | NUR ---
RECEIVED BEDSIDE REPORT. PT IS ORIENTED TO SELF ONLY. ON 02 AT 1 LITER. CALL LIGHT IN REACH.
[2023-02-17] VITALS (8 sets, daily range): BP systolic 106–151; BP diastolic 44–69
--- NOTE | 2023-02-17 05:37 | NUR ---
PT SLEPT WELL. COMPLIANT WITH MEDS. PERDOMO CATH PATENT AND DRAINING CLEAR YELLOW URINE. CALL LIGHT IN REACH
[2023-02-17 05:39] LABS: BASO% 0.3 % (0-3); EOS% 0.6 % (0-8); HEMATOCRIT 32.6 % (37.0-47.0); HEMOGLOBIN 10.1 g/dl (12.0-16.0); IMMATURE GRANULOCYTES 0.2 % (0.0-5.0); LYMPH% 9.6 % (15-41); MEAN CELL VOLUME 97.6 fL CALC (80.0-100.0); MEAN CORPUSCULAR HGB 30.2 pG CALC (26.0-32.0); NEUT# 7.39 thou/uL (2.00-7.15); NEUT% 79.3 % (42-76); RED BLOOD COUNT 3.34 mill/uL (4.20-5.60); RED CELL DISTRI WIDTH 13.5 % (11.5-15.5)
[2023-02-17 06:13] LABS: ALBUMIN 2.9 g/dL (3.2-5.0); BILIRUBIN, TOTAL 0.3 mg/dL (0.02-1.3); POTASSIUM 4.5 mmol/l (3.5-5.1); TOTAL PROTEIN 5.4 g/dL (6.3-8.2)
--- NOTE | 2023-02-17 08:00 | NUR ---
PT SITTING UP IN BED AWAKE ONLY ORIENTED TO FIRST NAME. PT HAS NO C/O PAIN AT THIS ITME. PT TELE ON WITH ALL LEADS ATTACHED. O2 @ 1 LITER ON VIA NC. PT LUNGS SOUNDS DIMINISHED. IV SITE TO RFA CLEAN AND INTACT. PERDOMO INTACT DRAINING CLEAR, YELLOW URINE. PT ABD IS DISTENDED WITH ACTIVE BS. PT HAS CALL LIGHT WITHIN REACH AND ALL SAFETY MEASURES IN PLACE.
--- NOTE | 2023-02-17 12:00 | NUR ---
PT SITTING UP IN CHAIR AT BEDSIDE. ALERT AND CONFUSED. PT DENIES PAIN AT THIS ITME. PERDOMO INTACT CONTINUES TO HAVE CLEAR, YELLOW URINE IN BAG. PT HAS CHAIR ALARM ON, CALL LIGHT WITHIN REACH AND ALL SAFETY MEASURES IN PLACE AT THIS ITME. WILL CONTINUE TO MONITOR PT.
--- NOTE | 2023-02-17 16:00 | NUR ---
PT LAYING IN BED AWAKE, REMAINS CONFUSED. PT HAS NO C/O PAIN AT THIS TIME. NO PERDOMO DRAINING CLEAR, YELLOW URINE. PT HAS CALL LIGHT WITHIN REACH AND ALL SAFETY MEASURES IN PLACE.
--- NOTE | 2023-02-17 19:15 | NUR ---
PATIENT RESTING IN BED WITH HOB ELEVATED. ALERT AND ABLE TO MAKE NEEDS KNOWN. APPEARS CONFUSED AT TIMES. PLEASANT. ASSESSMENT COMPLETE. DENIES ANY PAIN. NO DISTRESS NOTED. BED REMAINS IN LOW POSITION. CALL FORTE AND BELONGINGS IN REACH. BED ALARM ACTIVE FOR SAFETY.
--- NOTE | 2023-02-18 00:23 | NUR ---
PATIENT RECEIVED PRN TYLENOL FOR TEMP OF 100.4. PATIENT TOLERATED WELL. WILL RECHECK TEMP.
--- NOTE | 2023-02-18 01:00 | NUR ---
pt had a temp of 100.4 @7970. Nurse Sofiya notified @[id number].
[2023-02-18 04:15] VITALS: BP 106/44
--- NOTE | 2023-02-18 04:50 | NUR ---
PATIENT REMAINS RESTING IN BED. NO COMPLAINTS OF PAIN. NO DISTRESS NOTED. BED REMAINS IN LOW POSITION. BED ALARM ACTIVE. CALL FORTE IN REACH.
[2023-02-18 05:27] LABS: HEMATOCRIT 34.7 % (37.0-47.0); HEMOGLOBIN 10.7 g/dl (12.0-16.0); MEAN CELL VOLUME 98.6 fL CALC (80.0-100.0); MEAN CORPUSCULAR HGB 30.4 pG CALC (26.0-32.0); MEAN CORPUSCULAR HGB CONC 30.8 g/dL CAL (32.0-36.0); RED BLOOD COUNT 3.52 mill/uL (4.20-5.60); RED CELL DISTRI WIDTH 13.4 % (11.5-15.5)
[2023-02-18 05:44] LABS: ALBUMIN 3.1 g/dL (3.2-5.0); BILIRUBIN, TOTAL 0.2 mg/dL (0.02-1.3); CREATININE 2.1 mg/dL (0.5-1.0); MAGNESIUM 1.9 mg/dL (1.6-2.3); POTASSIUM 4.4 mmol/l (3.5-5.1)
--- NOTE | 2023-02-18 06:09 | NUR ---
pt refused daily weight @0966. RN Sofiya notified @[id number].
--- NOTE | 2023-02-18 06:28 | NUR ---
PATIENTS IV INFILTRATED TO RT FOREARM. DENIES ANY PAIN TO SITE. CATHETER INTACT WHEN IV REMOVED. SITE WRAPPED AND WARM COMPRESS APPLIED. PATIENT HAS BEEN REDIRECTED MULTIPLE TIMES THROUGH THE NIGHT ON NOT MESSING WITH IV SITE. SHE PICKS AT HER BLANKETS, NAILS, IV SITE AND REMOVED NASAL CANNULA MORE THAN ONCE. PATIENT DOES HAVE PERIODS OF FORGETFULNESS. NEW IV SITE #22 TO THE RT AC PLACED. REMINDED PATIENT TO NOT PICK AT IV SITE TO PREVENT FUTURE INFILTRATES. WILL RELAY IN REPORT TO ONCOMING DAYSHIFT NURSE.
[2023-02-18 07:23] VITALS: BP 115/51
--- NOTE | 2023-02-18 08:00 | NUR ---
PT SITTING UP IN CHAIR AWAKE AND EATING BREAKFAST, PT REMAINS COFUSED. PT HAS NO C/O PAIN AT THIS ITME. TELE ON WITH ALL LEADS ATTACHED. O2 @ 1 LITER ON VIA NC. IV SITE TO RAC CLEAN AND INTACT. PERDOMO CATH INTACT DRAINING CLEAR,YELLOW URINE. PT HAS CALL LIGHT WITHIN REACH AND ALL SAFETY MEASURES IN PLACE AT THIS TIME.
--- NOTE | 2023-02-18 09:59 | NUR ---
PERDOMO REMOVED PER ORDER, PT TOLERATED WELL. 100ML OF CLEAR, YELLOW URINE IN BAG AND EMPTIED PRIOR TO REMOVAL. WILL MONITOR PT URINE OUTPUT. CALL LIGHT WITHIN REACH.
[2023-02-18] MEDS ORDERED: AUGMENTIN500TAB PO (10:12)
[2023-02-18 11:18] VITALS: BP 121/55
--- NOTE | 2023-02-18 12:00 | NUR ---
PT BACK IN BED AND PURE WICK PLACED TO MONITOR PT OUTPUT, AT THIS TIME PT HAS NO URINE OUT SINCE REMOVAL OF PERDOMO. PT IS DRINKING WATER AND WILL CONTINUE TO ENCOURAGE FLUIDS. CALL LIGHT WITHIN REACH AND ALL SAFETY MEASURES IN PLACE AT THIS TIME.
--- NOTE | 2023-02-18 18:00 | NUR ---
Discharge instructions given. Patient verbalizes understanding of same. Discharged in stable condition via Wheelchair to Home with staff. All belongings sent with pt.
== END 2023-02-18 17:46 | disposition home health service (06) | DRG 194 ==
LOC: ED 08:16 → ED-I 10:00 → ED 10:21 → MS2 10:22
PROVIDERS: Family Medicine; Internal Medicine; ADMIT Internal Medicine; ATTEND Internal Medicine
DX: J18.9 Pneumonia, unspecified organism (principal); I13.0 Hypertensive heart and chronic kidney disease with heart failure and stage 1 through stage 4 chronic kidney disease, or unspecified chronic kidney disease; J44.0 Chronic obstructive pulmonary disease with (acute) lower respiratory infection; N39.0 Urinary tract infection, site not specified; J96.11 Chronic respiratory failure with hypoxia; I50.9 Heart failure, unspecified; N18.30 Chronic kidney disease, stage 3 unspecified; I48.0 Paroxysmal atrial fibrillation; F03.90 Unspecified dementia, unspecified severity, without behavioral disturbance, psychotic disturbance, mood disturbance, and anxiety; R33.9 Retention of urine, unspecified; I27.20 Pulmonary hypertension, unspecified; E78.5 Hyperlipidemia, unspecified; F41.9 Anxiety disorder, unspecified; F32.A Depression, unspecified; R63.6 Underweight; T41.5X6A Underdosing of therapeutic gases, initial encounter; Z91.128 Patient's intentional underdosing of medication regimen for other reason; Z68.20 Body mass index [BMI] 20.0-20.9, adult; Z96.0 Presence of urogenital implants; Z87.891 Personal history of nicotine dependence; Z20.822 Contact with and (suspected) exposure to COVID-19

== ENCOUNTER 2023-02-19 16:58 | Emergency (ER) | payer MEDICARE, OTHER ==
[~2023-02-19] VITALS: Ht 152.4 cm; Wt 63.0 kg
[2023-02-19] VITALS (14 sets, daily range): BP systolic 138–164; BP diastolic 60–81
[~2023-02-19 16:58] MED LIST changes: +AUGMENTIN500TAB PO
[2023-02-19 17:39] LABS: URINE BILIRUBIN - DIPSTICK NEGATIVE (NEGATIVE); URINE BLOOD DIPSTICK NEGATIVE (NEGATIVE); URINE COLOR YELLOW; URINE GLUCOSE - DIPSTICK NEGATIVE (NEGATIVE); URINE KETONE NEGATIVE (NEGATIVE); URINE PROTEIN - DIPSTICK TRACE mg/dL (NEG-TRACE); URINE SPECIFIC GRAVITY <=1.005; URINE UROBILINOGEN - DIPSTICK 0.2 E.U./dL (0.2)
[2023-02-19 17:40] LABS: BASO% 0.5 % (0-3); EOS% 5.1 % (0-8); HEMATOCRIT 37.1 % (37.0-47.0); HEMOGLOBIN 11.7 g/dl (12.0-16.0); IMMATURE GRANULOCYTES 0.5 % (0.0-5.0); MEAN CELL VOLUME 96.4 fL CALC (80.0-100.0); MEAN CORPUSCULAR HGB 30.4 pG CALC (26.0-32.0); MEAN CORPUSCULAR HGB CONC 31.5 g/dL CAL (32.0-36.0); MONO% 10.4 % (2-13); NEUT# 4.56 thou/uL (2.00-7.15); NEUT% 68.5 % (42-76); RED BLOOD COUNT 3.85 mill/uL (4.20-5.60); RED CELL DISTRI WIDTH 13.1 % (11.5-15.5)
[2023-02-19 17:42] LABS: URINE LEUK ESTERASE SMALL (NEGATIVE); URINE NITRITE - DIPSTICK NEGATIVE (Negative)
[2023-02-19 17:54] LABS: URINE SQUAMOUS EPITHELIAL CELL MODERATE EPI/hpf (0-FEW); URINE WBC 0-2 WBC/hpf (0-5)
[2023-02-19 17:55] LABS: BILIRUBIN, TOTAL 0.2 mg/dL (0.02-1.3); CREATININE 2.1 mg/dL (0.5-1.0); POTASSIUM 4.3 mmol/l (3.5-5.1)
[2023-02-19 18:01] LABS: ALBUMIN 3.9 g/dL (3.2-5.0); TOTAL PROTEIN 7.4 g/dL (6.3-8.2)
== END 2023-02-19 20:33 | disposition short-term general hospital (02) ==
LOC: ED 16:58
PROVIDERS: Family Medicine
DX: R55 Syncope and collapse (principal); I11.0 Hypertensive heart disease with heart failure; I50.9 Heart failure, unspecified; E78.5 Hyperlipidemia, unspecified; F03.90 Unspecified dementia, unspecified severity, without behavioral disturbance, psychotic disturbance, mood disturbance, and anxiety; J44.9 Chronic obstructive pulmonary disease, unspecified; I48.91 Unspecified atrial fibrillation; F32.A Depression, unspecified